=== PATIENT | male | born 1985 | race Caucasian/White ===

== ENCOUNTER 2016-06-10 09:32 | Emergency (ER) | payer BC ==
[~2016-06-10] VITALS: Ht 182.9 cm; Wt 86.2 kg
[~2016-06-10 09:32] MED LIST: CYCL10TA9 PO; HYDR-1231 PO; IBUP-30 PO; NAPR-243 PO; OMEP40CA36 PO; PRD20T PO
[2016-06-10] MEDS ORDERED: PRD20T (10:32)
--- NOTE | 2016-06-10 10:59 | ED GI ---
General Chief Complaint: Abdominal/GI Problems Stated Complaint: DIARRHEA, UPSET STOMACH Nursing Triage Note: DIZZINESS AND DIARRHEA SINCE SUNDAY. 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 Denies fevers or chills or abdominal pain. He has nausea but no vomiting. Timing/Duration: 2-3 Days Severity/Quality: Other (no pain) Associated Symptoms: No Fever/Chills, Nausea/Vomiting Allergies and Home Medications Allergies Coded Allergies: No Known Drug Allergies (Unverified , 08/25/09) Home Medications Prednisone 20 Mg Tab, #12 (Reported) Review of Systems Constitutional: see HPI EENTM: No Symptoms Reported Respiratory: No Symptoms Reported Cardiovascular: No Symptoms Reported Gastrointestinal: See HPI, Diarrhea, Nausea Genitourinary: No Symptoms Reported Musculoskeletal: no symptoms reported Skin: no symptoms reported Psychiatric/Neurological: No Symptoms Reported Endocrine: No Symptoms Reported Past Blvdxuh-Phybye-Zagqwl Hx Patient Social History Alcohol Use: Occasionally Uses Recreational Drug Use: No Smoking Status: Never a Smoker Recent Foreign Travel: No Contact w/Someone Who Travel: No Recent Infectious Disease Expo: No Recent Hopitalizations: Yes ("cat scratch fever" at 9yrs old) Immunizations Up To Date Tetanus Booster (TDap): Unknown Seasonal Allergies Seasonal Allergies: No Surgeries HX Surgeries: Yes (LT ARM TRAUMA, "NECK GLANDS FROM ") Surgeries: Orthopedic Respiratory Hx Respiratory Disorders: No Cardiovascular Hx Cardiac Disorders: No Neurological Hx Neurological Disorders: No Reproductive System Hx Reproductive Disorders: No Genitourinary Hx Genitourinary Disorders: No Gastrointestinal Hx Gastrointestinal Disorders: No Musculoskeletal Hx Musculoskeletal Disorders: Yes (LEFT ARM INJURY) Endocrine Hx Endocrine Disorders: No HEENT HX ENT Disorders: No Cancer Hx Cancer: No Psychosocial Hx Psychiatric Problems: No Integumentary HX Skin/Integumentary Disorder: No Blood Transfusions Hx Blood Disorders: No Physical Exam Vital Signs VS - Last 72 Hours, by Label 06/10/16 10:15 Temp 97.0 Pulse 79 Resp 18 B/P (MAP) 127/93 Pulse Ox 98 Capillary Refill : Less Than 3 Seconds General Appearance: WD/WN, no apparent distress HEENT: PERRL/EOMI, normal ENT inspection Neck: non-tender, full range of motion Respiratory: normal breath sounds, no respiratory distress, no accessory muscle use Gastrointestinal: normal bowel sounds, non tender, soft Extremities: normal range of motion, non-tender Neurologic/Psychiatric: alert, normal mood/affect, oriented x 3 Skin: normal color, warm/dry Progress/Results/Core Measures Results/Orders Lab Results Laboratory Tests Test 06/10/16 11:10 Range/Units White Blood Count 2.7 L 4.3-11.0 10^3/uL Red Blood Count 4.98 4.35-5.85 10^6/uL Hemoglobin 15.4 13.3-17.7 G/DL Hematocrit 46 40-54 % Mean Corpuscular Volume 92 80-99 FL Mean Corpuscular Hemoglobin 31 25-34 PG Mean Corpuscular Hemoglobin Concent 34 32-36 G/DL Red Cell Distribution Width 12.9 10.0-14.5 % Platelet Count 142 130-400 10^3/uL Mean Platelet Volume 9.0 7.4-10.4 FL Neutrophils (%) (Auto) 46 42-75 % Lymphocytes (%) (Auto) 35 12-44 % Monocytes (%) (Auto) 18 H 0-12 % Eosinophils (%) (Auto) 0 0-10 % Basophils (%) (Auto) 0 0-10 % Neutrophils # (Auto) 1.2 L 1.8-7.8 X 10^3 Lymphocytes # (Auto) 0.9 L 1.0-4.0 X 10^3 Monocytes # (Auto) 0.5 0.0-1.0 X 10^3 Eosinophils # (Auto) 0.0 0.0-0.3 10^3/uL Basophils # (Auto) 0.0 0.0-0.1 10^3/uL My Orders Orders - TERRELL DAVIDSON APRN Cbc With Automated Diff (06/10/16 10:56) Comprehensive Metabolic Panel (06/10/16 10:56) Ua Culture If Indicated (06/10/16 10:56) Stool Culture (06/10/16 10:56) C Difficile Ag + Toxin A/B. (06/10/16 10:56) Saline Lock/Iv-Start (06/10/16 10:56) Ns Iv 1000 Ml (Sodium Chloride 0.9%) (06/10/16 11:00) Vital Signs/I&O Vital Sign - Last 12Hours 06/10/16 10:15 Temp 97.0 Pulse 79 Resp 18 B/P (MAP) 127/93 Pulse Ox 98 Blood Pressure Mean: 104 Departure Impression Impression: Primary Impression: Nausea vomiting and diarrhea Disposition: 01 HOME, SELF-CARE Condition: Stable Departure-Patient Inst. Decision time for Depature: 11:01 Referrals: NO,LOCAL PHYSICIAN (PCP/Family) Primary Care Physician Patient Instructions: Diarrhea in Adolescents and Adults Add. Discharge Instructions: 1. Lssj-rce-obydwvz Imodium as needed for diarrhea 2. Drink plenty of liquids 3. Return to ER for any fevers or abdominal pain or obvious blood in your stools All discharge instructions reviewed with patient and/or family. Voiced understanding. Scripts Ondansetron (Zofran Odt) 8 Mg Tab.rapdis 8 MG PO Q6H Y for NAUSEA/VOMITING-1ST LINE, #10 TAB Prov: TERRELL DAVIDSON APRN 06/10/16 TERRELL DAVIDSON APRN Jun 10, 2016 10:59
[2016-06-10] MEDS ORDERED: NS IV 1000 ML 1,000 ML IV SCH (11:00)
[2016-06-10 11:19] LABS: BASOPHILS % (AUTO) 0 % (0-10); EOSINOPHILS % (AUTO) 0 % (0-10); LYMPHOCYTES # (AUTO) 0.9 X 10^3 (1.0-4.0); LYMPHOCYTES % (AUTO) 35 % (12-44); MEAN CORPUSCULAR HEMOGLOBIN 31 PG (25-34); MEAN CORPUSCULAR HGB CONC 34 G/DL (32-36); MEAN CORPUSCULAR VOLUME 92 FL (80-99); MONOCYTES # (AUTO) 0.5 X 10^3 (0.0-1.0); MONOCYTES % (AUTO) 18 % (0-12); NEUTROPHILS # (AUTO) 1.2 X 10^3 (1.8-7.8); NEUTROPHILS % (AUTO) 46 % (42-75); PLATELET COUNT 142 10^3/uL (130-400); RED BLOOD COUNT 4.98 10^6/uL (4.35-5.85); RED CELL DISTRIBUTION WIDTH 12.9 % (10.0-14.5); WHITE BLOOD COUNT 2.7 10^3/uL (4.3-11.0)
[2016-06-10 11:41] LABS: ALANINE AMINOTRANSFERASE 18 U/L (0-55); ANION GAP 10 MMOL/L (5-14); ASPARTATE AMINO TRANSFERASE 21 U/L (5-34); BILIRUBIN,TOTAL 0.4 MG/DL (0.1-1.0); BLOOD UREA NITROGEN 11 MG/DL (7-18); BUN/CREATININE RATIO 10; CALCIUM 8.7 MG/DL (8.5-10.1); CARBON DIOXIDE 27 MMOL/L (21-32); CHLORIDE 104 MMOL/L (98-107); CREATININE SERUM 1.05 MG/DL (0.60-1.30); GFR ESTIMATED > 60; GLUCOSE 97 MG/DL (70-105); POTASSIUM 4.2 MMOL/L (3.6-5.0); SODIUM 141 MMOL/L (135-145); TOTAL PROTEIN 6.5 G/DL (6.4-8.2)
[2016-06-10] MEDS ORDERED: ONDA8TAB9 PO (11:41)
[2016-06-10 11:56] VITALS: BP 113/79
== END 2016-06-10 11:56 | disposition home or self-care (01) ==
LOC: EDUNIT# 09:32 → ER 09:33
DX: R11.2 Nausea with vomiting, unspecified (principal); R19.7 Diarrhea, unspecified
CPT/HCPCS: 36415; 80053; 85025; 87045; 87046; 87324; 87449; 96360

== ENCOUNTER → 2016-06-16 | Outpatient (CLI) | payer BC ==
[~2016-06-16] MED LIST changes: +ONDA8TAB9 PO; +PRD20T
--- NOTE | 2016-06-16 10:19 | Diagnostic Imaging Report ---
PROCEDURE: US Gallbladder. TECHNIQUE: Multiple real-time grayscale images were obtained over the right upper quadrant in various projections. INDICATION: Right upper quadrant pain and nausea. FINDINGS: The pancreas is largely obscured by bowel gas. The liver demonstrate no focal mass. Hepatopetal flow the portal vein is seen. The CBD is 4 mm in caliber. The gallbladder demonstrates no stones. No gallbladder wall thickening or pericholecystic fluid. The right kidney is 9.8 cm in length. No hydronephrosis. No fluid collection in the upright abdomen seen. Sonographic Beckwith's sign is reportedly negative. IMPRESSION: No gallstones or evidence of cholecystitis. Dictated by: Dictated on workstation # [id number]
== END ==
LOC: RAD 09:26
PROVIDERS: ATTEND Nurse Practitioner Family
DX: R10.32 Left lower quadrant pain (principal); R10.13 Epigastric pain; R11.0 Nausea; R42 Dizziness and giddiness; R19.7 Diarrhea, unspecified
CPT/HCPCS: 76705

== ENCOUNTER 2018-02-23 14:55 | Emergency (ER) | payer BC ==
[~2018-02-23] VITALS: Ht 182.9 cm; Wt 86.2 kg
--- OUTSIDE RECORDS SUMMARY | 2018-02-23 15:00 | XMS REPORT | Continuity of Care Document ---
Author Author [facility] Organization [facility] Address Unknown Phone Unavailable Allergies Active Description Code Type Severity Reaction Onset Reported/Identified Relationship to Patient Clinical Status Yes No Known Drug Allergies [id number] Drug Allergy Unknown N/A 08/25/2009 Medications There is no data. Problems Date Dx Coded Attending Type Code Diagnosis Diagnosed By 04/26/2013 TERRELL DAVIDSON APRN Ot 724.2 LUMBAGO 04/26/2013 TERRELL DAVIDSON APRN Ot 784.0 HEADACHE 06/16/2013 TERRELL DAVIDSON APRN Ot 724.2 LUMBAGO 05/05/2015 JONATHAN DO, LAURA K Ot F17.210 NICOTINE DEPENDENCE, CIGARETTES, UNCOMPL 05/05/2015 JONATHAN DO, LAURA K Ot S05.31XA OCULAR LAC W/O PROLAPS/LOSS OF INTRAOC T 05/05/2015 JONATHAN DO, LAURA K Ot W20.8XXA OTH CAUSE OF STRIKE BY THROWN, PROJECTED 05/05/2015 JONATHAN DO, LAURA K Ot Y92.015 PRIVATE GARAGE OF SINGLE-FAMILY (PRIVATE 05/05/2015 JONATHAN DO, LAURA K Ot Y99.8 OTHER EXTERNAL CAUSE STATUS 05/06/2015 JONATHAN DO, LAURA K Ot F17.210 05/06/2015 JONATHAN DO, LAURA K Ot S05.31XA 05/06/2015 JONATHAN DO, LAURA K Ot W20.8XXA 05/06/2015 JONATHAN DO, LAURA K Ot Y92.015 05/06/2015 JONATHAN DO, LAURA K Ot Y99.8 05/06/2015 JONATHAN DO, LAURA K Ot F17.210 05/06/2015 JONATHAN DO, LAURA K Ot S05.31XA 05/06/2015 JONATHAN DO, LAURA K Ot W20.8XXA 05/06/2015 JONATHAN DO, LAURA K Ot Y92.015 05/06/2015 LAURA CASTILLO DO Ot Y99.8 06/10/2016 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 [employer] Ot R11.2 NAUSEA WITH VOMITING, UNSPECIFIED 06/10/2016 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 SALESPERSON [employer] Ot R19.7 DIARRHEA, UNSPECIFIED 06/12/2016 DAVIDSON, TERRELL Skelton SALESPERSON [employer] Ot R11.2 NAUSEA WITH VOMITING, UNSPECIFIED 06/12/2016 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 SALESPERSON [employer] Ot R19.7 DIARRHEA, UNSPECIFIED 06/16/2016 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 SALESPERSON [employer]IAL [employer]S Ot R11.2 NAUSEA WITH VOMITING, UNSPECIFIED 06/16/2016 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 SALESPERSON [employer] Ot R19.7 DIARRHEA, UNSPECIFIED 06/22/2016 MANAN NATASHA Vickey SALESPERSON [employer] Ot R10.13 EPIGASTRIC PAIN 06/22/2016 NATASHA HINKLE Vickey SALESPERSON [employer] Ot R10.32 LEFT LOWER QUADRANT PAIN 06/22/2016 NATASHA HINKLE Vickey SALESPERSON [employer] Ot R11.0 NAUSEA 06/22/2016 NATASHA HINKLE Vickey SALESPERSON [employer] Ot R19.7 DIARRHEA, UNSPECIFIED 06/22/2016 NATASHA HINKLE Vickey SALESPERSON [employer] Ot R42 DIZZINESS AND GIDDINESS 06/28/2016 NATASHA HINKLE Vickey SALESPERSON [employer] Ot R10.13 EPIGASTRIC PAIN 06/28/2016 NATASHA HINKLE Vickey SALESPERSON [employer] Ot R10.32 LEFT LOWER QUADRANT PAIN 06/28/2016 NATASHA HINKLE Vickey SALESPERSON [employer] Ot R11.0 NAUSEA 06/28/2016 NATASHA HINKLE SALESPERSON [employer] Ot R19.7 DIARRHEA, UNSPECIFIED 06/28/2016 NATASHA HINKLE Vickey SALESPERSON [employer] Ot R42 DIZZINESS AND GIDDINESS Procedures There is no data. Results Test Result Range Complete blood count (CBC) with automated white blood cell (WBC) differential - 06/10/16 11:10 Blood leukocytes automated count (number/volume) 2.7 10*3/uL 4.3-11.0 Blood erythrocytes automated count (number/volume) 4.98 10*6/uL 4.35-5.85 Venous blood hemoglobin measurement (mass/volume) 15.4 g/dL 13.3-17.7 Blood hematocrit (volume fraction) 46 % 40-54 Automated erythrocyte mean corpuscular volume 92 [foz_us] 80-99 Automated erythrocyte mean corpuscular hemoglobin (mass per erythrocyte) 31 pg 25-34 Automated erythrocyte mean corpuscular hemoglobin concentration measurement ( mass/volume) 34 g/dL 32-36 Automated erythrocyte distribution width ratio 12.9 % 10.0-14.5 Automated blood platelet count (count/volume) 142 10*3/uL 130-400 Automated blood platelet mean volume measurement 9.0 [foz_us] 7.4-10.4 Automated blood neutrophils/100 leukocytes 46 % 42-75 Automated blood lymphocytes/100 leukocytes 35 % 12-44 Blood monocytes/100 leukocytes 18 % 0-12 Automated blood eosinophils/100 leukocytes 0 % 0-10 Automated blood basophils/100 leukocytes 0 % 0-10 Blood neutrophils automated count (number/volume) 1.2 10*3 1.8-7.8 Blood lymphocytes automated count (number/volume) 0.9 10*3 1.0-4.0 Blood monocytes automated count (number/volume) 0.5 10*3 0.0-1.0 Automated eosinophil count 0.0 10*3/uL 0.0-0.3 Automated blood basophil count (count/volume) 0.0 10*3/uL 0.0-0.1 Comprehensive metabolic panel - 06/10/16 11:10 Serum or plasma sodium measurement (moles/volume) 141 mmol/L 135-145 Serum or plasma potassium measurement (moles/volume) 4.2 mmol/L 3.6-5.0 Serum or plasma chloride measurement (moles/volume) 104 mmol/L 98-107 Carbon dioxide 27 mmol/L 21-32 Serum or plasma anion gap determination (moles/volume) 10 mmol/L 5-14 Serum or plasma urea nitrogen measurement (mass/volume) 11 mg/dL 7-18 Serum or plasma creatinine measurement (mass/volume) 1.05 mg/dL 0.60-1.30 Serum or plasma urea nitrogen/creatinine mass ratio 10 NRG Serum or plasma creatinine measurement with calculation of estimated glomerular filtration rate > NRG Serum or plasma glucose measurement (mass/volume) 97 mg/dL 70-105 Serum or plasma calcium measurement (mass/volume) 8.7 mg/dL 8.5-10.1 Serum or plasma total bilirubin measurement (mass/volume) 0.4 mg/dL 0.1-1.0 Serum or plasma alkaline phosphatase measurement (enzymatic activity/volume) 38 U/L 40-136 Serum or plasma aspartate aminotransferase measurement (enzymatic activity/ volume) 21 U/L 5-34 Serum or plasma alanine aminotransferase measurement (enzymatic activity/volume ) 18 U/L 0-55 Serum or plasma protein measurement (mass/volume) 6.5 g/dL 6.4-8.2 Serum or plasma albumin measurement (mass/volume) 4.0 g/dL 3.2-4.5 [id number] - 06/10/16 11:10 RESULTS NEGATIVE FOR ANTIGEN AND TOXIN A/B NRG Stool bacteria identification by culture - 06/10/16 11:10 Encounters ACCT No. Visit Date/Time Discharge Status Pt. Type Provider Facility Loc./Unit Complaint [id number] 06/16/2016 09:26:00 06/16/2016 23:59:59 [facility] Outpatient NATASHA HINKLE APRN [facility] RAD R10.12 [id number] 06/10/2016 09:33:00 06/10/2016 11:56:00 DIS Emergency TERRELL DAVIDSON APRN [facility] ER DIARRHEA, UPSET STOMACH [id number] 05/05/2015 17:52:00 05/05/2015 18:48:00 DIS Emergency LAURA CASTILLO DO [facility] ER EYE PUNCTURED [id number] 06/16/2013 18:20:00 06/16/2013 19:47:00 DIS Emergency TERRELL DAVIDSON APRN [facility] ER LOWER BACK PAIN [id number] 04/26/2013 18:35:00 04/26/2013 20:33:00 DIS Emergency TERRELL DAVIDSON APRN [facility] ER LOWER BACK PAIN
--- OUTSIDE RECORDS SUMMARY | 2018-02-23 15:00 | XMS REPORT | Clinical Summary ---
Author Author [facility] Organization [facility] Address Unknown Phone Unavailable Care Team Providers Care Senior Grants Officer Name Role Phone No Pcp, Na PCP Unavailable Jamal Blood MD Unavailable Martina Drummond DO Unavailable Outpatient, Radiologist Unavailable Unavailable Derick Phan MD Unavailable Nedra Barrett RN Unavailable Unavailable Source Comments Some departments are not documenting in the electronic medical record. If you do not see the information that you expected, contact Release of Information in the Health Information Management department at [phone] for further assistance in locating additional records.[facility] Allergies No Known Allergies Medications End Date Status Medication Sig Dispensed Refills Start Date Active HYDROcodone/acetaminophen Take 1-2 Tabs 45 Tab 0 (NORCO; VICODIN) 5-325 mg by mouth 6 tablet every 6 hours as needed for Pain Active ondansetron (ZOFRAN) 4 mg Take 1 Tab by 30 Tab 1 tablet mouth every 4 6 hours as needed for Nausea. 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 Last Filed Vital Signs Time Taken Vital Sign Reading 03/17/2016 8:31 AM UNDERCOVER OPERATOR Blood Pressure 128/97 03/17/2016 8:31 AM UNDERCOVER OPERATOR Pulse 80 05/13/2015 11:32 AM CDT Temperature 36.5 C (97.7 F) - Respiratory Rate - 05/13/2015 1:15 PM CDT Oxygen Saturation 96% - Inhaled Oxygen - Concentration 03/17/2016 8:31 AM UNDERCOVER OPERATOR Weight 81.6 kg (180 lb) 03/17/2016 8:31 AM UNDERCOVER OPERATOR Height 182.9 cm (6') 03/17/2016 8:31 AM UNDERCOVER OPERATOR Body Mass Index 24.41 Plan of Treatment Health Maintenance Due Date Last Done Comments PHYSICAL (COMPREHENSIVE) 1993 EXAM HIV SCREENING 2001 DTAP/TDAP VACCINES ( - 2004 Tdap) INFLUENZA VACCINE 09/26/2017 Implants Device Identifier Shelf Expiration Date Model / Serial / Lot Implanted Type Area Manufactur er 11/22/2016 [id number] / [id number] / [id number] Sclera Tissie Right: Eye [employer] Implanted: Qty: 1 on 05/13/2015 by [employer] Derick Phan MD [place] 09/26/2019 [id number] / [id number] / [id number] Cnfr Opt Med Plamd 12 Prfr Right: Eye ASSISTED Implanted: Qty: 1 on 05/13/2015 by [employer] Derick Phan MD Results Not on filefrom Last 3 Months Insurance Payer Benefit Subscriber ID Type Phone Address Plan / Group [employer] xxxxxxxxxxxx O [facility] BL[facility] Advance Directives Patient has advance care planning documents, and code status on file. For more information, please contact: [facility] [address] [place] [address] Date Inactivated Comments Code Status Date Activated 05/06/2015 4:29 PM Full Code 05/06/2015 12:00 AM Provider has discussed Code Status No, more discussion w/Patient or Family? needed
--- NOTE | 2018-02-23 16:10 | ED General ---
General Chief Complaint: General Problems/Pain Stated Complaint: PAIN IN L ARMPIT, L ARM NUMBNESS Nursing Triage Note: Pt ambulated to rm 6 w/o diificulty. Pt c/o sharp pain in L armpit that began approximately 2 hours ago. Pt reports hand went numb afterward and felt as if "elbow was heavy." Pt reports feeling weak and nauseated. Nursing Sepsis Screen: No Definite Risk Source of Information: Patient Exam Limitations: No Limitations History of Present Illness Date Seen by Provider: Feb 23, 2018 Time Seen by Provider: 16:11 Initial Comments To ER with reports of sharp pain in the left upper lateral chest wall that seems to radiate down the left arm affecting the thumb pointer and middle finger as a sensation of numbness auras of the arm is asleep. 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 His numbness and tingling of the thumb pointer and middle finger has been intermittent and is not present currently. The sharp chest pain is not present currently. He cannot identify any factors such as movement or deep breathing that brings about/worsens this pain. He's never had this before. Timing/Duration: 1-2 Days Severity: Moderate Allergies and Home Medications Allergies Coded Allergies: No Known Drug Allergies (Unverified , 08/25/09) Home Medications Ondansetron 8 Mg Tab.rapdis, 8 MG PO Q6H PRN for NAUSEA/VOMITING-1ST LINE Prescribed by: TERRELL DAVIDSON on 06/10/16 1141 Patient Home Medication List Home Medication List Reviewed: Yes Review of Systems Review of Systems Constitutional: see HPI EENTM: see HPI Respiratory: no symptoms reported Cardiovascular: no symptoms reported Genitourinary: no symptoms reported Musculoskeletal: no symptoms reported Skin: no symptoms reported Psychiatric/Neurological: No Symptoms Reported Hematologic/Lymphatic: No Symptoms Reported Immunological/Allergic: no symptoms reported Past Hvrukmi-Aodwck-Daopct Hx Patient Social History Alcohol Use: Occasionally Uses Alcohol Beverage of Choice: Beer Recreational Drug Use: No Type Used: Smokeless Tobacco Recent Foreign Travel: No Contact w/Someone Who Travel: No Recent Infectious Disease Expo: No Recent Hopitalizations: Yes ("cat scratch fever" at 9yrs old) Physical Abuse: No Sexual Abuse: No Immunizations Up To Date Tetanus Booster (TDap): Unknown Seasonal Allergies Seasonal Allergies: No Past Medical History Surgeries: Yes (LT ARM TRAUMA, "NECK GLANDS FROM ") Orthopedic Respiratory: No Cardiac: No Neurological: No Reproductive Disorders: No Gastrointestinal: No Musculoskeletal: Yes (LEFT ARM INJURY) Endocrine: No Cancer: No Psychosocial: No Integumentary: No Blood Disorders: No Physical Exam Vital Signs Vital Signs - First Documented 02/23/18 15:36 Temp 98.3 Pulse 71 Resp 14 B/P (MAP) 138/90 (106) Pulse Ox 99 O2 Delivery Room Air Capillary Refill : Less Than 3 Seconds Height, Weight, BMI Height: 6'0" Weight: 190lbs. oz. 86.394791oh; 24.41 BMI Method:Stated General Appearance: No Apparent Distress, WD/WN Eyes: Bilateral Eye Normal Inspection, Bilateral Eye PERRL, Bilateral Eye EOMI HEENT: PERRL/EOMI, TMs Normal Neck: Full Range of Motion, Normal Inspection Respiratory: Normal Breath Sounds, No Accessory Muscle Use, No Respiratory Distress Cardiovascular: Regular Rate, Rhythm, Normal Peripheral Pulses Extremity: Normal Capillary Refill, Normal Inspection, Other (old scars over the left forearm from his injury 7 years ago. No erythema or swelling. Full range of motion of the elbow wrist and shoulder. The left lateral chest wall at the area of pain is nontender to palpation and without any skin lesion to suggest herpes zoster.) Neurologic/Psychiatric: Alert, Oriented x3 Skin: Normal Color, Warm/Dry Progress/Results/Core Measures Suspected Sepsis Recent Fever Within 48 Hours: No Infection Criteria Present: None New/Unexplained Altered Menta: No Sepsis Screen: No Definite Risk SIRS Temperature:98.3 Pulse: 71 Respiratory Rate: 14 Blood Pressure 138 /90 Mean: 106 Results/Orders My Orders Orders - TERRELL DAVIDSON APRN Cbc With Automated Diff (02/23/18 16:08) Basic Metabolic Panel (02/23/18 16:08) Chest Pa/Lat (2 View) (02/23/18 16:08) Vital Signs/I&O 02/23/18 15:36 Temp 98.3 Pulse 71 Resp 14 B/P (MAP) 138/90 (106) Pulse Ox 99 O2 Delivery Room Air Capillary Refill : Less Than 3 Seconds Blood Pressure Mean: 106 Departure Impression Primary Impression: Chest wall pain Disposition: 01 HOME, SELF-CARE Condition: Stable Departure-Patient Inst. Decision time for Depature: 16:14 Referrals: NO,LOCAL PHYSICIAN (PCP/Family) Primary Care Physician Add. Discharge Instructions: All discharge instructions reviewed with patient and/or family. Voiced understanding. TERRELL DAVIDSON MANUFACTURING TEST TECHNICIAN Feb 23, 2018 16:10
--- NOTE | 2018-02-23 16:32 | Diagnostic Imaging Report ---
INDICATION: Left-sided chest pain. FINDINGS: Examination of the chest in the PA and lateral projections fails to reveal evidence of active parenchymal pathology or pleural effusion. The cardiac silhouette is normal. IMPRESSION: Negative chest. There is no change from 06/06/2012. Dictated by: Dictated on workstation # [id number]
[2018-02-23 16:41] LABS: BASOPHILS % (AUTO) 1 % (0-10); EOSINOPHILS # (AUTO) 0.2 10^3/uL (0.0-0.3); EOSINOPHILS % (AUTO) 2 % (0-10); HEMATOCRIT 46 % (40-54); HEMOGLOBIN 15.7 G/DL (13.3-17.7); LYMPHOCYTES # (AUTO) 1.7 X 10^3 (1.0-4.0); LYMPHOCYTES % (AUTO) 21 % (12-44); MEAN CORPUSCULAR HEMOGLOBIN 32 PG (25-34); MEAN CORPUSCULAR HGB CONC 35 G/DL (32-36); MEAN CORPUSCULAR VOLUME 94 FL (80-99); MEAN PLATELET VOLUME 8.7 FL (7.4-10.4); MONOCYTES # (AUTO) 0.7 X 10^3 (0.0-1.0); MONOCYTES % (AUTO) 9 % (0-12); NEUTROPHILS # (AUTO) 5.5 X 10^3 (1.8-7.8); NEUTROPHILS % (AUTO) 68 % (42-75); PLATELET COUNT 247 10^3/uL (130-400); RED BLOOD COUNT 4.85 10^6/uL (4.35-5.85); RED CELL DISTRIBUTION WIDTH 12.8 % (10.0-14.5); WHITE BLOOD COUNT 8.1 10^3/uL (4.3-11.0)
[2018-02-23 16:58] LABS: BUN/CREATININE RATIO 10; CALCIUM 9.5 MG/DL (8.5-10.1); CARBON DIOXIDE 24 MMOL/L (21-32); CHLORIDE 102 MMOL/L (98-107); CREATININE SERUM 1.05 MG/DL (0.60-1.30); GFR ESTIMATED > 60; GLUCOSE 108 MG/DL (70-105); POTASSIUM 4.2 MMOL/L (3.6-5.0); SODIUM 139 MMOL/L (135-145)
[2018-02-23 17:08] VITALS: BP 134/82
== END 2018-02-23 17:10 | disposition home or self-care (01) ==
LOC: EDUNIT# 14:55 → ER 14:56
DX: R07.89 Other chest pain (principal)
CPT/HCPCS: 36415; 71046; 80048; 85025

== ENCOUNTER 2018-12-10 20:54 | Emergency (ER) | payer BC ==
[~2018-12-10] VITALS: Ht 182 cm; Wt 77.2 kg
--- NOTE | 2018-12-10 21:09 | ED Cardiac General ---
History of Present Illness General Chief Complaint: Chest Pain Stated Complaint: CHEST PAIN Source: patient Exam Limitations: no limitations History of Present Illness Date Seen by Provider: Dec 10, 2018 Time Seen by Provider: 21:07 Initial Comments To ER by private vehicle with reports of an onset left-sided chest pain worsens with movement that began about 6:30 PM this evening. No preceding trauma no cough no shortness of breath. The pain is worsened slightly worsened by breathing, but mostly worsened by movement. Pain is described as sharp in nature. No history of this. Timing/Duration: 1-3 hours Severity: moderate Activities at Onset: none NTG SL PIER MASTER: No ASA po PIER MASTER: No Associated Systoms: Chest Pain Allergies and Home Medications Allergies Coded Allergies: No Known Drug Allergies (Unverified , 08/25/09) Home Medications Ondansetron 8 Mg Tab.rapdis, 8 MG PO Q6H PRN for NAUSEA/VOMITING-1ST LINE Prescribed by: TERRELL DAVIDSON on 06/10/16 1141 Patient Home Medication List Home Medication List Reviewed: Yes Review of Systems Review of Systems Constitutional: see HPI EENTM: No Symptoms Reported Respiratory: See HPI Cardiovascular: See HPI, Chest Pain Gastrointestinal: No Symptoms Reported Genitourinary: No Symptoms Reported Musculoskeletal: no symptoms reported Skin: no symptoms reported Psychiatric/Neurological: No Symptoms Reported Past Welloau-Vphtkc-Mrhage Hx Patient Social History Alcohol Beverage of Choice: Beer Type Used: Smokeless Tobacco Recent Foreign Travel: No Contact w/Someone Who Travel: No Recent Hopitalizations: Yes ("cat scratch fever" at 9yrs old) Immunizations Up To Date Tetanus Booster (TDap): Unknown Seasonal Allergies Seasonal Allergies: No Past Medical History Surgeries: Yes (LT ARM TRAUMA, "NECK GLANDS FROM ") Orthopedic Respiratory: No Cardiac: No Neurological: No Reproductive Disorders: No Gastrointestinal: No Musculoskeletal: Yes (LEFT ARM INJURY) Endocrine: No Cancer: No Psychosocial: No Integumentary: No Blood Disorders: No Physical Exam Vital Signs Vital Signs - First Documented 12/10/18 20:55 Temp 36.9 Pulse 81 Resp 20 B/P (MAP) 136/91 (106) Pulse Ox 99 O2 Delivery Room Air Capillary Refill : Height, Weight, BMI Height: 6'0" Weight: 190lbs. oz. 86.967945ek; 24.41 BMI Method:Stated General Appearance: WD/WN, Mild Distress (related to pain with movement) Neck: Full Range of Motion Respiratory: Normal Breath Sounds, No Accessory Muscle Use, No Respiratory Distress Cardiovascular: Regular Rate, Rhythm, Normal Peripheral Pulses Gastrointestinal: Normal Bowel Sounds, Non Tender, Soft Extremity: Normal Capillary Refill, Normal Inspection Neurologic/Psychiatric: Alert, Oriented x3 Skin: Normal Color, Warm/Dry Progress/Results/Core Measures Results/Orders Lab Results Laboratory Tests Test 12/10/18 21:03 Range/Units White Blood Count 7.2 4.3-11.0 10^3/uL Red Blood Count 4.72 4.35-5.85 10^6/uL Hemoglobin 15.1 13.3-17.7 G/DL Hematocrit 44 40-54 % Mean Corpuscular Volume 94 80-99 FL Mean Corpuscular Hemoglobin 32 25-34 PG Mean Corpuscular Hemoglobin Concent 34 32-36 G/DL Red Cell Distribution Width 12.6 10.0-14.5 % Platelet Count 248 130-400 10^3/uL Mean Platelet Volume 8.7 7.4-10.4 FL Neutrophils (%) (Auto) 59 42-75 % Lymphocytes (%) (Auto) 26 12-44 % Monocytes (%) (Auto) 11 0-12 % Eosinophils (%) (Auto) 3 0-10 % Basophils (%) (Auto) 1 0-10 % Neutrophils # (Auto) 4.3 1.8-7.8 X 10^3 Lymphocytes # (Auto) 1.8 1.0-4.0 X 10^3 Monocytes # (Auto) 0.8 0.0-1.0 X 10^3 Eosinophils # (Auto) 0.2 0.0-0.3 10^3/uL Basophils # (Auto) 0.1 0.0-0.1 10^3/uL D-Dimer <= 0.27 0.00-0.49 UG/ML Sodium Level 139 135-145 MMOL/L Potassium Level 3.5 L 3.6-5.0 MMOL/L Chloride Level 103 98-107 MMOL/L Carbon Dioxide Level 24 21-32 MMOL/L Anion Gap 12 5-14 MMOL/L Blood Urea Nitrogen 13 7-18 MG/DL Creatinine 1.12 0.60-1.30 MG/DL Estimat Glomerular Filtration Rate > 60 BUN/Creatinine Ratio 12 Glucose Level 102 70-105 MG/DL Calcium Level 9.4 8.5-10.1 MG/DL Corrected Calcium 9.1 8.5-10.1 MG/DL Total Bilirubin 0.5 0.1-1.0 MG/DL Aspartate Amino Transf (AST/SGOT) 21 5-34 U/L Alanine Aminotransferase (ALT/SGPT) 16 0-55 U/L Alkaline Phosphatase 47 40-136 U/L Troponin I < 0.028 <0.028 NG/ML Total Protein 7.1 6.4-8.2 GM/DL Albumin 4.4 3.2-4.5 GM/DL My Orders Orders - TERRELL DAVIDSON APRN Cbc With Automated Diff (12/10/18 21:04) Hs C Reactive Protein (12/10/18 21:04) Troponin I (12/10/18 21:04) Ekg Tracing (12/10/18 21:04) Chest Pa/Lat (2 View) (12/10/18 21:04) Comprehensive Metabolic Panel (12/10/18 21:04) Ed Iv/Invasive Line Start (12/10/18 21:04) Ketorolac Injection (Toradol Injection) (12/10/18 21:15) Fentanyl Injection (Sublimaze Injection (12/10/18 21:15) Fibrin Degradation Products (12/10/18 21:05) Vital Signs/I&O 12/10/18 20:55 Temp 36.9 Pulse 81 Resp 20 B/P (MAP) 136/91 (106) Pulse Ox 99 O2 Delivery Room Air Diagnostic Imaging Diagonstic Imaging: Xray Comments NAME: RADHA ARRIAGA Alexandrea [facility] REC#: [id number] PT STATUS: REG ER : 1985 PHYSICIAN: TERRELL DAVIDSON APRN ADMIT DATE: 12/10/18/ER Draft Date of Exam:12/10/18 CHEST PA/LAT (2 VIEW) EXAMINATION: PA and lateral chest at 9:19 PM INDICATION: Shortness of breath The heart size is within normal limits and stable when compared to 02/23/18. Perihilar markings seen previously are again evident and no different. There is still no sign of failure, pneumonia or a pleural effusion to indicate an acute abnormality. The mediastinum is not widened. The osseous structures are intact. IMPRESSION: Stable chest. There has been no adverse change since the prior exam. Dictated on workstation # [id number] Dict: 12/10/182131 Trans: 12/10/182136 [facility] [id number] Interpreted by: ROSA CHILDS MD Electronically signed by: Departure Impression Primary Impression: Chest wall pain Disposition: HOME, SELF-CARE Condition: Stable Departure-Patient Inst. Decision time for Depature: 22:03 Referrals: NO,LOCAL PHYSICIAN (PCP/Family) Primary Care Physician Patient Instructions: Chest Pain That Is Not Caused by the Heart (DC) Add. Discharge Instructions: 1. Follow-up with your doctor later this week 2. Return if any concerns 3. All discharge instructions reviewed with patient and/or family. Voiced understanding. TERRELL DAVIDSON APRN Dec 10, 2018 21:09
[2018-12-10 21:10] LABS: BASOPHILS # (AUTO) 0.1 10^3/uL (0.0-0.1); BASOPHILS % (AUTO) 1 % (0-10); EOSINOPHILS # (AUTO) 0.2 10^3/uL (0.0-0.3); EOSINOPHILS % (AUTO) 3 % (0-10); HEMATOCRIT 44 % (40-54); HEMOGLOBIN 15.1 G/DL (13.3-17.7); LYMPHOCYTES # (AUTO) 1.8 X 10^3 (1.0-4.0); LYMPHOCYTES % (AUTO) 26 % (12-44); MEAN CORPUSCULAR HEMOGLOBIN 32 PG (25-34); MEAN CORPUSCULAR HGB CONC 34 G/DL (32-36); MEAN CORPUSCULAR VOLUME 94 FL (80-99); MEAN PLATELET VOLUME 8.7 FL (7.4-10.4); MONOCYTES # (AUTO) 0.8 X 10^3 (0.0-1.0); MONOCYTES % (AUTO) 11 % (0-12); NEUTROPHILS # (AUTO) 4.3 X 10^3 (1.8-7.8); NEUTROPHILS % (AUTO) 59 % (42-75); PLATELET COUNT 248 10^3/uL (130-400); RED CELL DISTRIBUTION WIDTH 12.6 % (10.0-14.5); WHITE BLOOD COUNT 7.2 10^3/uL (4.3-11.0)
[2018-12-10] MEDS ORDERED: fentaNYL INJECTION 100 MCG/2 ML AMP IVP ONE (21:15)
[2018-12-10] MEDS ORDERED: KETOROLAC 30 MG/ML VIAL IVP ONE (21:15)
--- NOTE | 2018-12-10 21:39 | Diagnostic Imaging Report ---
EXAMINATION: PA and lateral chest at 9:19 PM INDICATION: Shortness of breath The heart size is within normal limits and stable when compared to 02/23/18. Perihilar markings seen previously are again evident and no different. There is still no sign of failure, pneumonia or a pleural effusion to indicate an acute abnormality. The mediastinum is not widened. The osseous structures are intact. IMPRESSION: Stable chest. There has been no adverse change since the prior exam. Dictated by: Dictated on workstation # [id number]
[2018-12-10 21:42] LABS: ALANINE AMINOTRANSFERASE 16 U/L (0-55); ALBUMIN 4.4 GM/DL (3.2-4.5); ALKALINE PHOSPHATASE 47 U/L (40-136); BILIRUBIN,TOTAL 0.5 MG/DL (0.1-1.0); BUN/CREATININE RATIO 12; CALCIUM 9.4 MG/DL (8.5-10.1); CARBON DIOXIDE 24 MMOL/L (21-32); CHLORIDE 103 MMOL/L (98-107); CREATININE SERUM 1.12 MG/DL (0.60-1.30); GFR ESTIMATED > 60; GLUCOSE 102 MG/DL (70-105); POTASSIUM 3.5 MMOL/L (3.6-5.0); SODIUM 139 MMOL/L (135-145); TOTAL PROTEIN 7.1 GM/DL (6.4-8.2)
[2018-12-10 22:27] VITALS: BP 120/76
== END 2018-12-10 22:28 | disposition home or self-care (01) ==
LOC: EDUNIT# 20:54 → ER 20:55
DX: R07.89 Other chest pain (principal)
CPT/HCPCS: 36415; 71046; 80053; 84484; 85025; 85379; 86141; 93005

== ENCOUNTER → 2020-10-25 | Outpatient (CLI) | payer BC, OTHER ==
--- NOTE | 2020-10-25 11:38 | Diagnostic Imaging Report ---
PROCEDURE: US Gallbladder. TECHNIQUE: Multiple real-time grayscale images were obtained over the right upper quadrant in various projections. INDICATION: Right abdominal pain. COMPARISON: 06/16/2016. FINDINGS: The imaged portions of the pancreatic head and body appear normal. The tail is obscured by bowel gas. Imaged portions of the aorta and IVC appear normal. The liver demonstrates no focal lesions. Echogenicity is normal. There is no biliary dilatation. The portal vein is hepatopetal. The common bile duct measures 3.2 mm. The gallbladder wall is not thickened. No stones are seen. Sonographic Beckwith's sign is negative. The kidney measures 10.6 cm in length. There is no hydronephrosis. No free fluid is seen. IMPRESSION: 1. No acute abnormality is seen in the liver or gallbladder. Dictated by: Dictated on workstation # [id number]
== END ==
LOC: RAD 08:53
PROVIDERS: ATTEND Nurse Practitioner Family
DX: R10.31 Right lower quadrant pain (principal); R11.0 Nausea; R19.5 Other fecal abnormalities; R10.84 Generalized abdominal pain
CPT/HCPCS: 76705

== ENCOUNTER → 2020-11-04 | Outpatient (CLI) | payer BC, OTHER ==
[2020-11-04] MEDS: CATHETER FLUSH 10 ML SYR IV PRN ×2 (11:49→11:50)
--- NOTE | 2020-11-04 14:29 | Diagnostic Imaging Report ---
RADIOPHARMACEUTICAL: 4.51 mCi Tc-99m Choletec IV INDICATION: Right upper quadrant pain. COMPARISON: Ultrasound dated October 25, 2020. TECHNIQUE: Anterior dynamic imaging for 1 hour. Additional 60 minutes of imaging was performed after the patient ingested an 8-ounce can of Ensure Plus. FINDINGS: There is homogenous uptake throughout the liver. The gallbladder is visualized at 35 minutes and small bowel at 15 minutes. After the patient ingested an 8-ounce can of Ensure Plus, the gallbladder ejection fraction was calculated to be 52%, which is within normal limits. IMPRESSION: 1. Normal HIDA Scan without evidence of cystic or common duct obstruction. 2. Normal GBEF of 52%. Dictated by: Dictated on workstation # [id number]
== END ==
LOC: CARD 12:00
PROVIDERS: ATTEND Nurse Practitioner Family
DX: R10.11 Right upper quadrant pain (principal)
CPT/HCPCS: 78227; A9537

== ENCOUNTER 2021-01-10 19:21 | Emergency (ER) | payer OTHER ==
[~2021-01-10] VITALS: Ht 182.8 cm; Wt 75.0 kg
[2021-01-10] MEDS ORDERED: ASPIRIN 81 MG CHEW (CHILDREN'S ASA) PO ONE (19:30)
[2021-01-10 19:48] LABS: BASOPHILS # (AUTO) 0.1 10^3/uL (0.0-0.1); BASOPHILS % (AUTO) 1 % (0-10); EOSINOPHILS # (AUTO) 0.1 10^3/uL (0.0-0.3); EOSINOPHILS % (AUTO) 1 % (0-10); HEMATOCRIT 47 % (40-54); HEMOGLOBIN 15.9 g/dL (13.3-17.7); LYMPHOCYTES % (AUTO) 22 % (12-44); MEAN CORPUSCULAR HEMOGLOBIN 32 pg (25-34); MEAN CORPUSCULAR HGB CONC 34 g/dL (32-36); MEAN CORPUSCULAR VOLUME 94 fL (80-99); MEAN PLATELET VOLUME 8.7 fL (9.0-12.2); MONOCYTES # (AUTO) 0.8 10^3/uL (0.0-1.0); MONOCYTES % (AUTO) 8 % (0-12); NEUTROPHILS # (AUTO) 6.1 10^3/uL (1.8-7.8); NEUTROPHILS % (AUTO) 67 % (42-75); PLATELET COUNT 238 10^3/uL (130-400); WHITE BLOOD COUNT 9.1 10^3/uL (4.3-11.0)
[2021-01-10 20:15] LABS: ALBUMIN 4.4 GM/DL (3.2-4.5); BILIRUBIN,TOTAL 0.6 MG/DL (0.1-1.0); CALCIUM 9.4 MG/DL (8.5-10.1); CREATININE SERUM 1.03 MG/DL (0.60-1.30); MAGNESIUM 1.5 MG/DL (1.6-2.4); POTASSIUM 3.9 MMOL/L (3.6-5.0); TOTAL PROTEIN 7.4 GM/DL (6.4-8.2)
[2021-01-10] MEDS ORDERED: NITROGLYCERIN 0.4 MG SL TABS BTL 25'S SL PRN (20:15)
--- NOTE | 2021-01-10 20:16 | ED Chest Pain ---
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--NO LIFTING OR STRENUOUS ACTIVITY PAIN COMES AND GOES AND MOVES AROUND FROM LEFT LATERAL CHEST TO LEFT AXILLA TO LEFT INFRASCAPULAR AREA RATES PAIN 8-9/10 AT WORST, RATES PAIN 5/10 NOW. PAIN IS WORSE WITH ACTIVITY/WALKING AND SITTING UP. NOTHING RELIEVES PAIN ALSO HAS HAD INTERMITTENT NUMBNESS THAT ALSO MOVES AROUND--IN RIGHT AXILLA, DORSAL BICEPS AREA, AND SOME FINGERS NO NECK PAIN NO MOTOR DEFICITS STATES HE BROKE OUT IN A SWEAT, BUT ONLY AROUND HIS NECK, WITH THE PAIN EARLIER TODAY, AROUND NOON NO SHORTNESS OF BREATH NO SWELLING OF FEET OR ANKLES OR PAIN IN CALVES NO PALPITATIONS NO DIZZINESS OR SYNCOPE HAS HAD ONGOING NAUSEA AND EPIGASTRIC PAIN FOR 3-4 MONTHS--GALLBLADDER WORK UP HAS BEEN NEGATIVE, AND IS SCHEDULED TO HAVE EGD 02/11/[address] THOSE SYMPTOMS ARE NOT PRESENT NOW. NO HISTORY OF SIMILAR NO COUGH, URI SYMPTOMS OR FEVER PT HAS NOT HAD COVID-19 VACCINE. PCP: [facility] Allergies and Home Medications Allergies Coded Allergies: No Known Drug Allergies (Unverified , 08/25/09) Patient Home Medication List Ondansetron (Zofran Odt) 8 Mg Tab.rapdis, 8 MG PO Q6H PRN for NAUSEA/VOMITING- 1ST LINE Prescribed by: TERRELL DAVIDSON on 06/10/16 1141 Prednisone (Prednisone) 20 Mg Tab, (Reported) Entered as Reported by: CAMERON BOWMAN on 06/10/16 1032 Review of Systems Review of Systems Constitutional: see HPI, diaphoresis EENTM: No Symptoms Reported Respiratory: No Symptoms Reported; Denies Cough, Denies Shortness of Air Cardiovascular: See HPI; Denies Edema, Denies Irregular Heart Rate, Denies Lightheadedness, Denies Palpitations, Denies Syncope Gastrointestinal: See HPI Genitourinary: No Symptoms Reported Musculoskeletal: see HPI Skin: no symptoms reported Psychiatric/Neurological: See HPI Endocrine: No Symptoms Reported Hematologic/Lymphatic: No Symptoms Reported Past Rurwolz-Ftjwxx-Nnyisn Hx Patient Social History Tobacco Use?: Yes Tobacco type used: Cigarettes Smoking Status: Current Someday Smoker Smokeless Tobacco Frequency: Current Everyday User Substance use?: No Alcohol Use?: Yes Alcohol type: Beer, Hard Liquor Alcohol Frequency: Daily Immunizations Up To Date Tetanus Booster (TDap): Unknown PED Vaccines UTD: Yes Seasonal Allergies Seasonal Allergies: No Past Medical History Surgeries: Yes (LT ARM TRAUMA, "NECK GLANDS FROM ", right eye) Eye Surgery, Orthopedic Respiratory: No Cardiac: No Neurological: No Reproductive Disorders: No Genitourinary: No Gastrointestinal: No Musculoskeletal: Yes (LEFT ARM INJURY) Endocrine: No HEENT: Yes (RIGHT EYE TRAUMA/ENUCLEATION/FALSE EYE) Cancer: No Psychosocial: No Integumentary: No Blood Disorders: No Family Medical History SOCIAL HISTORY: -SMOKES CIGARETTES SOMETIMES, CHEWS DAILY -DENIES DRUG USE -DRINKS ALCOHOL DAILY--"3-4 DRINKS" A DAY--HARD LIQUOR/BEER PAST SURGICAL HISTORY: -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 oz. 86.802904ps; 23.00 BMI Method:Stated General Appearance: No Apparent Distress, WD/WN Neck: Normal Inspection Respiratory: Chest Non Tender, Normal Breath Sounds, No Accessory Muscle Use, No Respiratory Distress Cardiovascular: Regular Rate, Rhythm, No Edema, No JVD, No Murmur, Normal Peripheral Pulses Gastrointestinal: Normal Bowel Sounds, No Organomegaly, No Pulsatile Mass, Non Tender, Soft Extremity: Normal Capillary Refill, Normal Inspection, Normal Range of Motion, Non Tender, No Calf Tenderness, No Pedal Edema Neurologic/Psychiatric: Alert, Oriented x3, No Motor/Sensory Deficits, Normal 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, 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 Skin: Normal Color, Warm/Dry; No Rash Progress/Results/Core Measures Results/Orders Lab Results Laboratory Tests Test 01/10/21 19:39 01/10/21 20:20 01/10/21 23:15 Range/Units White Blood Count 9.1 4.3-11.0 10^3/uL Red Blood Count 4.97 4.30-5.52 10^6/uL Hemoglobin 15.9 13.3-17.7 g/dL Hematocrit 47 40-54 % Mean Corpuscular Volume 94 80-99 fL Mean Corpuscular Hemoglobin 32 25-34 pg Mean Corpuscular Hemoglobin Concent 34 32-36 g/dL Red Cell Distribution Width 12.3 10.0-14.5 % Platelet Count 238 130-400 10^3/uL Mean Platelet Volume 8.7 L 9.0-12.2 fL Immature Granulocyte % (Auto) 0 % Neutrophils (%) (Auto) 67 42-75 % Lymphocytes (%) (Auto) 22 12-44 % Monocytes (%) (Auto) 8 0-12 % Eosinophils (%) (Auto) 1 0-10 % Basophils (%) (Auto) 1 0-10 % Neutrophils # (Auto) 6.1 1.8-7.8 10^3/uL Lymphocytes # (Auto) 2.0 1.0-4.0 10^3/uL Monocytes # (Auto) 0.8 0.0-1.0 10^3/uL Eosinophils # (Auto) 0.1 0.0-0.3 10^3/uL Basophils # (Auto) 0.1 0.0-0.1 10^3/uL Immature Granulocyte # (Auto) 0.0 0.0-0.1 10^3/uL Prothrombin Time 13.0 12.2-14.7 SEC INR Comment 0.9 0.8-1.4 Activated Partial Thromboplast Time 31 24-35 SEC Sodium Level 137 135-145 MMOL/L Potassium Level 3.9 3.6-5.0 MMOL/L Chloride Level 100 98-107 MMOL/L Carbon Dioxide Level 24 21-32 MMOL/L Anion Gap 13 5-14 MMOL/L Blood Urea Nitrogen 11 7-18 MG/DL Creatinine 1.03 0.60-1.30 MG/DL Estimat Glomerular Filtration Rate 83 BUN/Creatinine Ratio 11 Glucose Level 110 H 70-105 MG/DL Calcium Level 9.4 8.5-10.1 MG/DL Corrected Calcium 9.1 8.5-10.1 MG/DL Magnesium Level 1.5 L 1.6-2.4 MG/DL Total Bilirubin 0.6 0.1-1.0 MG/DL Aspartate Amino Transf (AST/SGOT) 19 5-34 U/L Alanine Aminotransferase (ALT/SGPT) 16 0-55 U/L Alkaline Phosphatase 46 40-136 U/L Total Creatine Kinase 84 30-200 U/L Creatine Kinase MB 1.1 <6.6 NG/ML Myoglobin 33.1 10.0-92.0 NG/ML Troponin I < 0.028 < 0.028 <0.028 NG/ML B-Type Natriuretic Peptide < 10.0 <100.0 PG/ML Total Protein 7.4 6.4-8.2 GM/DL Albumin 4.4 3.2-4.5 GM/DL Amylase Level 83 25-125 U/L Lipase 43 8-78 U/L Urine Opiates Screen NEGATIVE NEGATIVE Urine Oxycodone Screen NEGATIVE NEGATIVE Urine Methadone Screen NEGATIVE NEGATIVE Urine Propoxyphene Screen NEGATIVE NEGATIVE Urine Barbiturates Screen NEGATIVE NEGATIVE Ur Tricyclic Antidepressants Screen NEGATIVE NEGATIVE Urine Phencyclidine Screen NEGATIVE NEGATIVE Urine Amphetamines Screen NEGATIVE NEGATIVE Urine Methamphetamines Screen NEGATIVE NEGATIVE Urine Benzodiazepines Screen NEGATIVE NEGATIVE Urine Cocaine Screen NEGATIVE NEGATIVE Urine Cannabinoids Screen NEGATIVE NEGATIVE My Orders Orders - LAURA CASTILLO DO Amylase (01/10/21 19:48) BNP (01/10/21 19:48) Drug Screen Stat (Urine) (01/10/21 19:48) Lipase (01/10/21 19:48) Creatine Kinase (01/10/21 19:48) Creatine Kinase Mb (01/10/21 19:48) Nitroglycerin 0.4 Mg Btl 25's (Nitrostat (01/10/21 20:15) Ct Angio Chest W (01/10/21 20:28) Iohexol Injection (Omnipaque 350 Mg/Ml 1 (01/10/21 21:00) Received Contrast (Hold Metformin- Contr (01/10/21 21:00) Ns (Ivpb) (Sodium Chloride 0.9% Ivpb Bag (01/10/21 21:00) Troponin I (01/10/21 23:11) Ekg Tracing (01/10/21 23:11) Rx-Naproxen (Rx-Naprosyn) (01/10/21 23:55) Medications Given in ED Current Medications Medications Dose Ordered Sig/Tricia Route Start Time Stop Time Status Last Admin Dose Admin Aspirin 324 mg ONCE ONCE PO 01/10/21 19:30 01/10/21 19:32 DC 01/10/21 19:51 324 MG Iohexol 100 ml ONCE ONCE IV 01/10/21 21:00 01/10/21 21:01 DC 01/10/21 21:58 100 ML Nitroglycerin 1 TAB Q 5 MIN X 3 NEEDED PRN SL 01/10/21 20:15 01/10/21 20:09 0.4 MG Sodium Chloride 100 ml ONCE ONCE IV 01/10/21 21:00 01/10/21 21:01 DC 01/10/21 21:58 80 ML Vital Signs/I&O 01/10/21 19:28 Temp 36.8 Pulse 81 Resp 18 B/P (MAP) 146/109 (121) Pulse Ox 98 O2 Delivery Room Air Progress Progress Note : Progress Note GIVEN ASPIRIN AND NTG X 1--PT STATES PAIN IS GONE, BUT PAIN HAS BEEN COMING AND GOING ON IT'S OWN ALL DAY NO COMPLAINTS OF PAIN FOR REMAINDER OF ER STAY PT OBSERVED IN ER AND 3 HOUR REPEAT TROPONIN AND EKG DONE MUCH DELAY IN OBTAINING AND THEN RECEIVING REPORT ON CT SCAN. Initial ECG Impression Date: Jan 10, 2021 Initial ECG Impression Time: 19:33 Initial ECG Rate: 82 Initial ECG Rhythm: Normal Sinus Initial ECG Comparisson: No Previous ECG Available Diagnostic Imaging Comments CXR-- CT CHEST ANGIOGRAM-- Reviewed: Reviewed by Me Departure Impression Primary Impression: Left-sided chest pain Disposition: HOME, SELF-CARE Condition: Improved Departure-Patient Inst. Decision time for Depature: 23:55 Referrals: NO,LOCAL PHYSICIAN (PCP/Family) Primary Care Physician Patient Instructions: Chest Pain Add. Discharge Instructions: HOME, REST FOLLOW UP WITH YOUR DR IN 2-3 DAYS FOR FURTHER CARE, RETURN TO ER IF SYMPTOMS WORSEN All discharge instructions reviewed with patient and/or family. Voiced understanding. Scripts Naproxen (Naproxen) 500 Mg Tablet. 500 MG PO BID, #20 TAB Prov: LAURA CASTILLO DO 01/10/21 LAURA CASTILLO DO Jan 10, 2021 20:16
[2021-01-10 20:18] LABS: CREATINE KINASE MB 1.1 NG/ML (<6.6)
[2021-01-10 20:27] LABS: INR 0.9 (0.8-1.4)
--- NOTE | 2021-01-10 20:30 | Diagnostic Imaging Report ---
EXAM: CHEST 1 VIEW, AP/PA ONLY INDICATION: Chest pain. Left arm numbness. COMPARISON: 06/06/2012. FINDINGS: Normal heart size and pulmonary vascularity. No dense consolidation, pleural effusion or pneumothorax. No acute osseous findings. IMPRESSION: Negative chest. Dictated by: Dictated on workstation # [id number]
[2021-01-10 20:38] LABS: AMPHETAMINE SCREEN, URINE NEGATIVE (NEGATIVE); BARBITURATE SCREEN URINE NEGATIVE (NEGATIVE); BENZODIAZEPINES SCREEN URINE NEGATIVE (NEGATIVE); CANNABINOID SCREEN, URINE NEGATIVE (NEGATIVE); COCAINE SCREEN URINE NEGATIVE (NEGATIVE); METHADONE STAT NEGATIVE (NEGATIVE); METHAMPHETAMINE SCREEN URINE S NEGATIVE (NEGATIVE); OPIATE SCREEN URINE NEGATIVE (NEGATIVE); OXYCODONE STAT NEGATIVE (NEGATIVE); PROPOXYPHENE STAT NEGATIVE (NEGATIVE); TRICYCLIC ANTIDEPRESSANTS SCRE NEGATIVE (NEGATIVE)
[2021-01-10] MEDS ORDERED: HOLD METFORMIN - RECEIVED CONTRAST 20 ML VIAL IV SCH (21:00)
[2021-01-10] MEDS ORDERED: IOHEXOL 350 MG/ML 100 ML (OMNIPAQUE 350) VIAL IV ONE (21:00)
[2021-01-10] MEDS ORDERED: NS 100 ML (IVPB) BAG IV ONE (21:00)
--- NOTE | 2021-01-10 23:45 | Diagnostic Imaging Report ---
PROCEDURE: CT angiography of the chest with contrast. TECHNIQUE: Multiple contiguous axial images were obtained through the chest after uneventful bolus administration of intravenous contrast. 3D reconstructed CTA MIP acquisitions were also performed. Auto Exposure Controls were utilized during the CT exam to meet ALARA standards for radiation dose reduction. INDICATION: Shortness of air. Cough. Chest pain. COMPARISON: Chest radiograph 12/10/2018. FINDINGS: No pulmonary artery filling defects. Normal caliber thoracic aorta. Normal heart size. No pericardial effusion. No lymphadenopathy. The lungs are clear. No pleural effusion or pneumothorax. No acute osseous findings. Visualized upper abdominal contents are negative. IMPRESSION: 1. No pulmonary emboli. 2. No acute CT findings in the chest. Dictated by: Dictated on workstation # [id number]
[2021-01-10] MEDS ORDERED: RX-NAPROXEN (NAPROSYN) 250 MG TAB PPK#4 PO STA (23:55)
[2021-01-10] MEDS ORDERED: NAPR500T8 PO (23:57)
[2021-01-11 00:01] VITALS: BP 122/78
== END 2021-01-11 00:01 | disposition home or self-care (01) ==
LOC: EDUNIT# 19:21 → ER 19:22
DX: R07.9 Chest pain, unspecified (principal); F17.210 Nicotine dependence, cigarettes, uncomplicated
CPT/HCPCS: 36415; 71045; 71275; 80053; 80306; 82150; 82550; 82553; 83690; 83735; 83874; 83880; 84484; 85025; 85610; 85730; 93005; 93041

== ENCOUNTER 2021-02-15 09:44 | Emergency (ER) | payer OTHER ==
[~2021-02-15] VITALS: Ht 182 cm; Wt 88.0 kg
[~2021-02-15 09:44] MED LIST changes: +NAPR500T8 PO
[2021-02-15 10:17] LABS: BASOPHILS % (AUTO) 1 % (0-10); EOSINOPHILS # (AUTO) 0.1 10^3/uL (0.0-0.3); EOSINOPHILS % (AUTO) 2 % (0-10); HEMATOCRIT 51 % (40-54); HEMOGLOBIN 16.5 g/dL (13.3-17.7); LYMPHOCYTES # (AUTO) 1.3 10^3/uL (1.0-4.0); LYMPHOCYTES % (AUTO) 27 % (12-44); MEAN CORPUSCULAR HEMOGLOBIN 32 pg (25-34); MEAN CORPUSCULAR HGB CONC 33 g/dL (32-36); MEAN CORPUSCULAR VOLUME 99 fL (80-99); MEAN PLATELET VOLUME 8.9 fL (9.0-12.2); MONOCYTES # (AUTO) 0.4 10^3/uL (0.0-1.0); MONOCYTES % (AUTO) 8 % (0-12); NEUTROPHILS # (AUTO) 3.1 10^3/uL (1.8-7.8); NEUTROPHILS % (AUTO) 62 % (42-75); PLATELET COUNT 204 10^3/uL (130-400)
[2021-02-15 10:42] LABS: BILIRUBIN,URINE NEGATIVE (NEGATIVE); CLARITY,URINE CLEAR; COLOR,URINE YELLOW; GLUCOSE, URINE (UA) NEGATIVE (NEGATIVE); KETONES,URINE 1+ (NEGATIVE); LEUKOCYTE ESTERASE ,URINE NEGATIVE (NEGATIVE); NITRITE,URINE NEGATIVE (NEGATIVE); PROTEIN,URINE NEGATIVE (NEGATIVE)
[2021-02-15 10:48] LABS: ALBUMIN 4.4 GM/DL (3.2-4.5); POTASSIUM 4.4 MMOL/L (3.6-5.0)
[2021-02-15 10:49] LABS: CALCIUM 9.1 MG/DL (8.5-10.1)
[2021-02-15 10:51] LABS: BACTERIA,URINE NEGATIVE /HPF; SQUAMOUS EPITHELIAL CELL,UR RARE /HPF; WBC,URINE RARE /HPF
[2021-02-15 10:51] LABS: TOTAL PROTEIN 7.5 GM/DL (6.4-8.2)
[2021-02-15 10:52] LABS: BILIRUBIN,TOTAL 0.8 MG/DL (0.1-1.0)
[2021-02-15 10:54] LABS: CREATININE SERUM 0.94 MG/DL (0.60-1.30)
[2021-02-15] MEDS ORDERED: NS 100 ML (IVPB) BAG IV ONE (12:00)
[2021-02-15] MEDS ORDERED: HOLD METFORMIN - RECEIVED CONTRAST 20 ML VIAL IV SCH (12:00)
[2021-02-15] MEDS ORDERED: IOHEXOL 350 MG/ML 100 ML (OMNIPAQUE 350) VIAL IV ONE (12:00)
--- NOTE | 2021-02-15 12:25 | Diagnostic Imaging Report ---
CLINICAL INDICATION: Patient complains of abdominal pain tonight intense since Sunday night. Patient was seen at urgent care and given GI cocktail and Toradol. EXAM: Axial CT scan of the abdomen and pelvis performed with 100 cc of Omnipaque 350 IV contrast. Sagittal and coronal reformatted images are created. Auto Exposure Controls were utilized during the CT exam to meet ALARA standards for radiation dose reduction. COMPARISON: Right upper quadrant ultrasound dated 10/25/2020. FINDINGS: There is mild atelectasis involving the posterior aspects of both lung bases. Likely bone island involving the left proximal femur. There is a sclerotic area involving the right L5 pars interarticularis region with no current defects seen. The liver, spleen, pancreas, gallbladder, and adrenal glands are unremarkable. Both kidneys are unremarkable with no stones, mass or hydronephrosis. The bladder is fluid filled and otherwise unremarkable. There is a [id number] amount of stool in the rectosigmoid region. There are diverticula involving the transverse colon and descending colon and sigmoid colon with no CT evidence of diverticulitis. There is wall thickening of the stomach and the stomach is decompressed and these findings are nonspecific. There is no intestinal obstruction. There is no intra-abdominal free air or free fluid. There are multiple subcentimeter short axis lymph nodes in the mesenteric and pericecal region. The appendix is unremarkable. The extra-abdominal and extrapelvic soft tissue structures are unremarkable. IMPRESSION: 1: There are multiple subcentimeter short axis lymph nodes in the mesenteric and pericecal region which may be related to mesenteric adenitis. 2: There is diverticulosis with no CT evidence of diverticulitis. 3: The remainder of this exam is unremarkable for acute finding. The appendix is unremarkable. Dictated by: Dictated on workstation # [id number]
[2021-02-15] MEDS ORDERED: FAMOTIDINE 20MG/2ML IV (PEPCID) IVP ONE (12:45)
[2021-02-15] MEDS ORDERED: OMEP20CA18 PO (13:00)
[2021-02-15] MEDS ORDERED: SUCR1TAB36 PO (13:00)
--- NOTE | 2021-02-15 13:01 | ED Abdominal Pain ---
General Chief Complaint: Abdominal/GI Problems Stated Complaint: ABD/BACK PAIN Nursing Triage Note: PT CO OF ABD PAIN 12/05 SINCE SUNDAY NIT. PT WAS SEEN AT [facility] GIVEN GI COCKTAIL AND TORDOL 60MG IM AND SENT TO ED Source of Information: Patient Exam Limitations: No Limitations History of Present Illness Date Seen by Provider: Feb 15, 2021 Time Seen by Provider: 09:55 Initial Comments This 35-year-old gentleman presents to the emergency room via private vehicle with complaints of upper abdominal pain. This pain has been present for several months intermittently but has become much more severe recently. He reports pain is high as 10 out of 10 on the pain scale. He was supposed to have endoscopy last Sunday but discovered it would be too expensive on his current insurance plan. He did not go through with the endoscopy. He has been seeing the medical provider at his employer. He has had multiple evaluations including gallbladder ultrasound and HIDA scan which were negative. Pain has been intense and persistent for the past 3 days. He was seen at the clinic today and given a GI cocktail. That did not improve his pain so he presented to the ER at their direction. He states taking omeprazole in the past has not been very helpful. He denies any notable exacerbating or alleviating factors other than some worsening of the pain with movement. He does admit to chewing tobacco and drinking 3-4 beers daily. He has not noted that periods of time with abstinence improve the pain. He also describes symptoms of heartburn. He often feels bloated. He denies any nausea, vomiting, diarrhea, constipation, or urinary changes. Allergies and Home Medications Allergies Coded Allergies: No Known Drug Allergies (Unverified , 08/25/09) Patient Home Medication List Home Medication List Reviewed: Yes Naproxen (Naproxen) 500 Mg Tablet., 500 MG PO BID Prescribed by: LAURA CASTILLO on 01/10/21 1417 Omeprazole (Omeprazole) 20 Mg Capsule., 20 MG PO BID Prescribed by: VIRA BAER on 02/15/21 1300 Ondansetron (Zofran Odt) 8 Mg Tab.rapdis, 8 MG PO Q6H PRN for NAUSEA/VOMITING- 1ST LINE Prescribed by: TERRELL DAVIDSON on 06/10/16 1141 Prednisone (Prednisone) 20 Mg Tab, (Reported) Entered as Reported by: CAMERON BOWMAN on 06/10/16 1032 Sucralfate (Carafate) 1 Gm Tablet, 1 GM PO QID Prescribed by: VIRA BAER on 02/15/21 1300 Review of Systems Review of Systems Constitutional: no symptoms reported EENTM: No Symptoms Reported Respiratory: No Symptoms Reported Cardiovascular: No Symptoms Reported Gastrointestinal: See HPI Genitourinary: No Symptoms Reported Musculoskeletal: no symptoms reported Skin: no symptoms reported Psychiatric/Neurological: No Symptoms Reported Endocrine: No Symptoms Reported Hematologic/Lymphatic: No Symptoms Reported Past Fbbexfl-Wrlmdt-Xaopbw Hx Patient Social History Tobacco Use?: Yes Smokeless Tobacco Frequency: Current Everyday User Substance use?: No Alcohol Use?: Yes Alcohol type: Beer Alcohol Frequency: Daily Pt feels they are or have been: No Immunizations Up To Date Tetanus Booster (TDap): Unknown PED Vaccines UTD: Yes Seasonal Allergies Seasonal Allergies: No Past Medical History Surgeries: Yes (LT ARM TRAUMA, "NECK GLANDS FROM ", right eye) Eye Surgery (Prosthetic right eye), Orthopedic Respiratory: No Cardiac: No Neurological: No Reproductive Disorders: No Genitourinary: No Gastrointestinal: Yes Gastroesophageal Reflux Musculoskeletal: Yes (LEFT ARM INJURY) Endocrine: No HEENT: Yes (RIGHT EYE TRAUMA/ENUCLEATION/FALSE EYE) Cancer: No Psychosocial: No Integumentary: No Blood Disorders: No Family Medical History SOCIAL HISTORY: -SMOKES CIGARETTES SOMETIMES, CHEWS DAILY -DENIES DRUG USE -DRINKS ALCOHOL DAILY--"3-4 DRINKS" A DAY--HARD LIQUOR/BEER PAST SURGICAL HISTORY: -RIGHT EYE REMOVED/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 oz. 86.109122te; 26.00 BMI Method:Stated General Appearance: WD/WN, no apparent distress HEENT: normal ENT inspection, other (Prosthetic right eye) Neck: normal inspection Respiratory: chest non-tender, lungs clear, normal breath sounds, no respiratory distress, no accessory muscle use Cardiovascular: regular rate, rhythm, no edema, no murmur Gastrointestinal: soft; No distended; tenderness (Epigastrium) Extremities: normal inspection, no pedal edema Neurologic/Psychiatric: air hole driller II-XII nml as tested, no motor/sensory deficits, alert, normal mood/affect, oriented x 3 Skin: normal color, warm/dry Progress/Results/Core Measures Results/Orders Lab Results Laboratory Tests Test 02/15/21 10:05 02/15/21 10:39 Range/Units White Blood Count 5.0 4.3-11.0 10^3/uL Red Blood Count 5.12 4.30-5.52 10^6/uL Hemoglobin 16.5 13.3-17.7 g/dL Hematocrit 51 40-54 % Mean Corpuscular Volume 99 80-99 fL Mean Corpuscular Hemoglobin 32 25-34 pg Mean Corpuscular Hemoglobin Concent 33 32-36 g/dL Red Cell Distribution Width 12.4 10.0-14.5 % Platelet Count 204 130-400 10^3/uL Mean Platelet Volume 8.9 L 9.0-12.2 fL Immature Granulocyte % (Auto) 0 % Neutrophils (%) (Auto) 62 42-75 % Lymphocytes (%) (Auto) 27 12-44 % Monocytes (%) (Auto) 8 0-12 % Eosinophils (%) (Auto) 2 0-10 % Basophils (%) (Auto) 1 0-10 % Neutrophils # (Auto) 3.1 1.8-7.8 10^3/uL Lymphocytes # (Auto) 1.3 1.0-4.0 10^3/uL Monocytes # (Auto) 0.4 0.0-1.0 10^3/uL Eosinophils # (Auto) 0.1 0.0-0.3 10^3/uL Basophils # (Auto) 0.0 0.0-0.1 10^3/uL Immature Granulocyte # (Auto) 0.0 0.0-0.1 10^3/uL Sodium Level 139 135-145 MMOL/L Potassium Level 4.4 3.6-5.0 MMOL/L Chloride Level 104 98-107 MMOL/L Carbon Dioxide Level 22 21-32 MMOL/L Anion Gap 13 5-14 MMOL/L Blood Urea Nitrogen 11 7-18 MG/DL Creatinine 0.94 0.60-1.30 MG/DL Estimat Glomerular Filtration Rate 92 BUN/Creatinine Ratio 12 Glucose Level 91 70-105 MG/DL Calcium Level 9.1 8.5-10.1 MG/DL Corrected Calcium 8.8 8.5-10.1 MG/DL Total Bilirubin 0.8 0.1-1.0 MG/DL Aspartate Amino Transf (AST/SGOT) 21 5-34 U/L Alanine Aminotransferase (ALT/SGPT) 16 0-55 U/L Alkaline Phosphatase 54 40-136 U/L C-Reactive Protein High Sensitivity 0.09 0.00-0.50 MG/DL Total Protein 7.5 6.4-8.2 GM/DL Albumin 4.4 3.2-4.5 GM/DL Lipase 21 8-78 U/L Urine Color YELLOW Urine Clarity CLEAR Urine pH 6.0 5-9 Urine Specific [place] 1.025 H 1.016-1.022 Urine Protein NEGATIVE NEGATIVE Urine Glucose (UA) NEGATIVE NEGATIVE Urine Ketones 1+ H NEGATIVE Urine Nitrite NEGATIVE NEGATIVE Urine Bilirubin NEGATIVE NEGATIVE Urine Urobilinogen 0.2 < = 1.0 MG/DL Urine Leukocyte Esterase NEGATIVE NEGATIVE Urine RBC (Auto) NEGATIVE NEGATIVE Urine RBC NONE /HPF Urine WBC RARE /HPF Urine Squamous Epithelial Cells RARE /HPF Urine Crystals NONE /LPF Urine Bacteria NEGATIVE /HPF Urine Casts NONE /LPF Urine Mucus SMALL H /LPF Urine Culture Indicated NO My Orders Orders - VIRA QUEEN MD Cbc With Automated Diff (02/15/21 09:55) Comprehensive Metabolic Panel (02/15/21 09:55) Hs C Reactive Protein (02/15/21 09:55) Lipase (02/15/21 09:55) Ua Culture If Indicated (02/15/21 09:55) Ed Iv/Invasive Line Start (02/15/21 09:55) Ct Abdomen/Pelvis W (02/15/21 11:43) Iohexol Injection (Omnipaque 350 Mg/Ml 1 (02/15/21 12:00) Received Contrast (Hold Metformin- Contr (02/15/21 12:00) Ns (Ivpb) (Sodium Chloride 0.9% Ivpb Bag (02/15/21 12:00) Famotidine Injection (Pepcid Injection) (02/15/21 12:45) Medications Given in ED Vital Signs/I&O 12/21/21 12/21/21 09:55 13:17 Temp 35.9 Pulse 91 84 Resp 18 18 B/P (MAP) 143/89 (107) 128/79 Pulse Ox 98 98 Blood Pressure Mean: 107 Progress Progress Note : Progress Note Lab evaluation was unremarkable. Patient was offered further evaluation with CT scan which he agreed to. CT showed no definite etiology for his pain. I stressed the importance of pursuing endoscopy. I advised him to fill out president financial institution paperwork and perhaps pursue endoscopy with is [facility] surgeon. This may be more cost effective for him. In the meantime he is to take PPI and Carafate therapy. Dietary restrictions were also reviewed with him. He was strongly advised to quit drinking alcohol. I offered Ativan to help him combat withdrawal symptoms. He prefers to taper slowly. Diagnostic Imaging Diagonstic Imaging: CT Plain Films/CT/US/NM/MRI: abdomen, pelvis Comments CT abdomen pelvis viewed by me and report reviewed. See report below: NAME: RADHA ARRIAGA MED REC#: [id number] PT STATUS: DEP ER : 1985 PHYSICIAN: VIRA QUEEN MD ADMIT DATE: 02/15/21/ER Signed Date of Exam:02/15/21 CT ABDOMEN/PELVIS W CLINICAL INDICATION: Patient complains of abdominal pain tonight intense since Sunday night. Patient was seen at urgent care and given GI cocktail and Toradol. EXAM: Axial CT scan of the abdomen and pelvis performed with 100 cc of Omnipaque 350 IV contrast. Sagittal and coronal reformatted images are created. Auto Exposure Controls were utilized during the CT exam to meet ALARA standards for radiation dose reduction. COMPARISON: Right upper quadrant ultrasound dated 10/25/2020. FINDINGS: There is mild atelectasis involving the posterior aspects of both lung bases. Likely bone island involving the left proximal femur. There is a sclerotic area involving the right L5 pars interarticularis region with no current defects seen. The liver, spleen, pancreas, gallbladder, and adrenal glands are unremarkable. Both kidneys are unremarkable with no stones, mass or hydronephrosis. The bladder is fluid filled and otherwise unremarkable. There is a afxye-xw-wrxdeimy amount of stool in the rectosigmoid region. There are diverticula involving the transverse colon and descending colon and sigmoid colon with no CT evidence of diverticulitis. There is wall thickening of the stomach and the stomach is decompressed and these findings are nonspecific. There is no intestinal obstruction. There is no intra-abdominal free air or free fluid. There are multiple subcentimeter short axis lymph nodes in the mesenteric and pericecal region. The appendix is unremarkable. The extra-abdominal and extrapelvic soft tissue structures are unremarkable. IMPRESSION: 1: There are multiple subcentimeter short axis lymph nodes in the mesenteric and pericecal region which may be related to mesenteric adenitis. 2: There is diverticulosis with no CT evidence of diverticulitis. 3: The remainder of this exam is unremarkable for acute finding. The appendix is unremarkable. Dictated by: Dictated on workstation # [id number] Dict: 02/15/21 1205 Trans: 02/15/21 1744 [id number] Interpreted by: ESTEFANIA COLLADO MD Electronically signed by: ESTEFANIA COLLADO MD 02/15/214 Departure Impression Primary Impression: Upper abdominal pain Disposition: 01 HOME, SELF-CARE Condition: Stable Departure-Patient Inst. Decision time for Depature: 12:55 Referrals: KOKO SHIPLEY BRETT D DO NO,LOCAL PHYSICIAN (PCP) Primary Care Physician Patient Instructions: Acid Reflux and Gastroesophageal Reflux Disease in Adults, Gastritis (DC), Severe Abdominal Pain, Adult (DC) Add. Discharge Instructions: Start taking omeprazole 20 mg twice daily along with Carafate as prescribed. Take these medications continuously until you are instructed by your doctor or a surgeon to stop. Work toward tapering alcohol consumption and eventually quit after tapering off for 1 to 2 weeks. If you are unable to stop on your own, please seek assistance. Avoid the following: Eating large meals, eating close to bedtime, caffeine, carbonation, citrus fruits and juices, chocolate, tomato products, tobacco, alcohol, spicy foods, fatty or greasy foods, NSAID medications such as ibuprofen or naproxen, or anything else you know irritates your stomach. You may take Tylenol (acetaminophen) up to 1000 mg every 6 hours as needed for pain. You may additionally try Tums per package instructions. Seek referral to a surgeon for endoscopy (scoping of your stomach and esophagus). A list of [facility] surgeons as below. Inquire about president financial institution paperwork at the registration desk. Call with questions or concerns. Return to the ER if you have worsening symptoms. All discharge instructions reviewed with patient and/or family. Voiced understanding. Scripts Sucralfate (Carafate) 1 Gm Tablet 1 GM PO QID, #120 TAB 2 Refills Dissolve or crush and mix into 5 to 10 mL water to make a slurry. Take 30 minutes before meals and bedtime. Prov: VIRA QUEEN MD 02/15/21 Omeprazole (Omeprazole) 20 Mg Capsule. 20 MG PO BID, #60 CAP 2 Refills Prov: VIRA QUEEN MD 02/15/21 VIRA QUEEN MD Feb 15, 2021 13:01
[2021-02-15 13:17] VITALS: BP 128/79
== END 2021-02-15 13:17 | disposition home or self-care (01) ==
LOC: EDUNIT# 09:44 → ER 09:46
DX: K21.9 Gastro-esophageal reflux disease without esophagitis (principal); R10.13 Epigastric pain; F17.290 Nicotine dependence, other tobacco product, uncomplicated
CPT/HCPCS: 36415; 74177; 80053; 81000; 83690; 85025; 86141

== ENCOUNTER 2021-03-04 05:29 | Outpatient (RCR) | payer OTHER ==
[~2021-03-04] VITALS: Ht 182.9 cm; Wt 88.8 kg
[~2021-03-04 05:29] MED LIST changes: +CYCL1DRO OP; +HYDR50TA76 PO; +OMEP20CA18 PO; +SUCR1TAB36 PO
[2021-03-08] MEDS ORDERED: PANT40TA2 PO (09:56)
== END 2021-03-04 09:35 | disposition home or self-care (01) ==
LOC: PREOP 05:29
PROVIDERS: ATTEND Surgery
DX: K21.9 Gastro-esophageal reflux disease without esophagitis (principal); Z20.822 Contact with and (suspected) exposure to COVID-19
CPT/HCPCS: 87635

== ENCOUNTER → 2021-03-08 | Day surgery (SDC) | payer OTHER ==
[~2021-03-08] VITALS: Ht 182 cm; Wt 88.0 kg
[~2021-03-08] MED LIST changes: +ACET325T38 PO; +CETI10TA49 PO; +HURRICAINE EXT TUBE (BENZOCAINE) XX PRN; +LACTATED RINGERS 1,000 ML IV ONE; +LACTATED RINGERS 1,000 ML IV STA; +MIDAZOLAM 2 MG/2 ML (VERSED) VIAL ONE; +PANT40TA2 PO; +proPOfol 200 MG/20 ML (DIPRIVAN) VIAL IV ONE
[2021-03-08 08:20] VITALS: BP 127/94
--- NOTE | 2021-03-08 08:27 | Progress Note-Pre Operative ---
Pre-Operative Progress Note H&P Reviewed The H&P was reviewed, patient examined and no changes noted. Date Seen by Provider: Mar 08, 2021 Time Seen by Provider: 08: Date H&P Reviewed: Mar 08, 2021 Time H&P Reviewed: 08:27 Pre-Operative Diagnosis: chronic gerd, epigastric pain FARHAN LARES DO Mar 08, 2021 08:27
[2021-03-08 09:50] VITALS: BP 100/65
--- NOTE | 2021-03-08 09:54 | Progress Note-Post Operative ---
Post-Operative Progess Note Surgeon (s)/Sequencing Machine Operator (s) Surgeon FARHAN LARES DO Sequencing Machine Operator: NA Pre-Operative Diagnosis chronic gerd, epigastric pain Post-Operative Diagnosis Reflux esophagitis Procedure & Operative Findings Date of Procedure 03/08/21 Procedure Performed/Findings EGD c biopsies Anesthesia Type Per FLOW COORDINATOR Estimated Blood Loss Estimated blood loss (mL): none Specimens/Packing Specimens Removed GE and antral biopsies FARHAN LARES DO Mar 08, 2021 09:54
[2021-03-08 09:55] VITALS: BP 100/67
--- NOTE | 2021-03-08 09:57 | Discharge Inst-Simple/Standard ---
Discharge Inst-Standard Discharge Medications New, Converted or Re-Newed RX: Transmitted to Pharmacy Patient Instructions/Follow Up Plan of Care/Instructions/FU: 2 weeks Pancho Activity as Tolerated: Yes Discharge Diet: Regular Diet FARHAN LARES DO Mar 08, 2021 09:57
[2021-03-08 10:10] VITALS: BP 109/79
--- NOTE | 2021-03-08 13:22 | Anesthesia-General Post-Op ---
MAC Patient Condition Mental Status/LOC: Same as Preop Cardiovascular: Satisfactory Nausea/Vomiting: Absent Respiratory: Satisfactory Pain: Controlled Complications: Absent Post Op Complications Complications None Follow Up Care/Instructions Patient Instructions None needed. Anesthesiology Discharge Order Discharge Order Patient is doing well, no complaints, stable vital signs, no apparent adverse anesthesia problems. No complications reported per nursing. HARRIETT PIERCE CRNA Mar 08, 2021 13:22
--- NOTE | 2021-03-08 14:43 | OPERATIVE REPORT ---
DATE OF SERVICE: 03/08/2021 PREOPERATIVE DIAGNOSES: Gastroesophageal reflux disease, epigastric abdominal pain. POSTOPERATIVE DIAGNOSIS: Reflux esophagitis. PROCEDURE: EGD with biopsies. SURGEON: Farhan Deleon DO ANESTHESIA: Per EDUCATION ADVISER. ESTIMATED BLOOD LOSS: None. COMPLICATIONS: None. INDICATIONS: The patient is a 35-year-old male with long-standing GERD symptoms and having epigastric abdominal pain. He understands risks and benefits of procedure and wishes to proceed. Consent was signed in the chart. DESCRIPTION OF PROCEDURE: The patient was taken to endoscopy suite, placed in left lateral recumbent position. Timeout was performed. Scope was inserted in mouth, down the esophagus, stomach and into the duodenum without difficulty. There were no polyps, masses or ulcerations within the duodenum. Scope was slowly retracted back into the stomach where it was further insufflated. No polyps, masses or ulcerations within the stomach. Biopsy of the antrum was obtained. Scope was retroflexed noting no other pathology. Scope was returned to its normal position, slowly withdrawn to distal esophagus. Some slight erythematous changes. Biopsy of the GE junction was obtained. No polyps, masses or ulcerations. Scope was slowly retracted back until completely removed. The patient tolerated procedure well without any complications, taken to recovery room in stable condition. RECOMMENDATIONS: The patient will stop omeprazole and started on Protonix 40 mg daily. We will follow up in the office in a couple of weeks. If symptoms not improved, we would consider gallbladder workup and may need a cholecystectomy. Job ID: [id number] DocumentID: [id number] Dictated Date: 03/08/2021 10:05:03 Raveler Date: 03/08/2021 14:42:48 Dictated By: FARHAN DELEON DO [facility]
== END | disposition home or self-care (01) ==
LOC: ENDO 07:52
PROVIDERS: ATTEND Surgery
DX: K21.00 Gastro-esophageal reflux disease with esophagitis, without bleeding (principal); F41.9 Anxiety disorder, unspecified; Z91.14 Patient's other noncompliance with medication regimen
CPT/HCPCS: 88305

== ENCOUNTER 2021-04-07 05:34 | Outpatient (CLI) | payer OTHER ==
[~2021-04-07] VITALS: Ht 182.9 cm
[~2021-04-07 05:34] MED LIST changes: -ACET325T38 PO; -CETI10TA49 PO; -HURRICAINE EXT TUBE (BENZOCAINE) XX PRN; -LACTATED RINGERS 1,000 ML IV ONE; -LACTATED RINGERS 1,000 ML IV STA; -MIDAZOLAM 2 MG/2 ML (VERSED) VIAL ONE; -proPOfol 200 MG/20 ML (DIPRIVAN) VIAL IV ONE
[2021-04-11] MEDS ORDERED: SUCR1TAB36 PO (10:27)
[2021-04-11] MEDS ORDERED: OMEP20CA18 PO (10:27)
[2021-04-11] MEDS ORDERED: CETI10TA49 PO (10:27)
[2021-04-11] MEDS ORDERED: ACET325T38 PO (10:27)
== END 2021-04-11 10:33 | disposition home or self-care (01) ==
LOC: PREOP 05:34
PROVIDERS: ATTEND Surgery
DX: Z01.818 Encounter for other preprocedural examination (principal)

== ENCOUNTER 2021-04-14 05:58 | Day surgery (SDC) | payer OTHER ==
[~2021-04-14] VITALS: Ht 182 cm; Wt 84.0 kg
[2021-04-14] VITALS (10 sets, daily range): BP systolic 103–130; BP diastolic 53–90
[~2021-04-14 05:58] MED LIST changes: +ACET325T38 PO; +CETI10TA49 PO
[2021-04-14] MEDS ORDERED: ceFAZolin 2 GM IV Premixed 50 ML IV ONE (06:15)
[2021-04-14] MEDS: LACTATED RINGERS 1,000 ML IV PRN ×2 (07:00→08:30)
[2021-04-14] MEDS ORDERED: LIDOCAINE/EPI 1%-1:200,000 (XYLOCAINE) 30 ML VIAL ONE (07:19)
[2021-04-14] MEDS ORDERED: GLYCOPYRROLATE 0.2 MG/ML (ROBINUL) 2 ML VIAL ONE (07:29)
[2021-04-14] MEDS ORDERED: NEOSTIGMINE 3 MG/3 ML VIAL ONE (07:29)
[2021-04-14] MEDS ORDERED: LIDOCAINE PF 2% 5 ML (XYLOCAINE) VIAL ONE (07:29)
[2021-04-14] MEDS ORDERED: ONDANSETRON 4 MG/2 ML (SDV) Z0FRAN ONE (07:29)
[2021-04-14] MEDS ORDERED: proPOfol 200 MG/20 ML (DIPRIVAN) VIAL IV ONE (07:29)
[2021-04-14] MEDS ORDERED: fentaNYL INJ 100 MCG/2 ML AMP ONE (07:29)
[2021-04-14] MEDS ORDERED: ROCURONIUM 10 MG/ML 5 ML SYRINGE IV ONE (07:29)
[2021-04-14] MEDS ORDERED: MIDAZOLAM 2 MG/2 ML (VERSED) VIAL ONE (07:29)
--- NOTE | 2021-04-14 08:13 | Progress Note-Pre Operative ---
Pre-Operative Progress Note H&P Reviewed The H&P was reviewed, patient examined and no changes noted. Date Seen by Provider: Apr 14, 2021 Time Seen by Provider: 08:12 Date H&P Reviewed: Apr 14, 2021 Time H&P Reviewed: 08:12 Pre-Operative Diagnosis: epigastric abd pain, biliary dyskinesia FARHAN LARES DO Apr 14, 2021 08:13
--- NOTE | 2021-04-14 08:58 | Progress Note-Post Operative ---
Post-Operative Progess Note Surgeon (s)/Tinner Automatic (s) Surgeon FARHAN LARES DO Tinner Automatic: Dr. Madison to assist in retraction dissection and closure. Pre-Operative Diagnosis epigastric abd pain, biliary dyskinesia Post-Operative Diagnosis same Procedure & Operative Findings Date of Procedure 04/14/21 Procedure Performed/Findings PROCEDURE: Laparoscopic cholecystectomy with intraoperative cholangiogram. COMPLICATIONS: None. PROCEDURE: The patient was taken to the operating suite and was prepped and draped in sterile fashion. A surgical pause was performed. Just superior to the umbilicus, a 12 mm incision was made. Dissection was taken down to the fascia, which was then scored and grasped with a Simeon and the abdomen was then entered. A 0 Vicryl suture was placed in a [id number] fashion and a Gonzalez trocar was placed and secured. Pneumoperitoneum was achieved. A 5mm trochar place in the subxyphoid and 2 in the right upper quadrant. The gallbladder was then grasped and elevated. The cystic duct, and cystic artery were then dissected out. Clip was placed on the distal portion of the cystic duct which was then partially transected. An arrow catheter was inserted into the duct. The cholangiogram was then performed. No filing defects and contrast made its way into the duodenum. Catheter removed. Clips were placed on proximal portion of the cystic duct and then the duct was then transected. Clips were placed along the proximal and distal portion of the cystic artery which was then transected. Hook cautery was used to dissect the gallbladder from the gallbladder fossa achieving hemostasis. The gallbladder was placed in an Endobag and removed through the 12 mm trocar site. The abdomen was then reinspected. Copious amounts of irrigation were used to irrigate the abdomen and there were no signs of active bleeding. Hemostasis had been achieved. The 12 mm fascial defect was then closed with 0 Vicryl suture that had been placed in a uailio-ax-yxxvm fashion. The abdomen was then desufflated, the trocars were removed. The abdomen was then washed and dried. The skin was then closed using 4-0 Monocryl in a subcuticular fashion. The abdomen was washed and dried and Skin Affix was place over incisions. Patient tolerated the procedure well without any complications and was taken to the recovery room in stable condition. Anesthesia Type general Estimated Blood Loss Estimated blood loss (mL): minimal Specimens/Packing Specimens Removed gallbladder FARHAN LARES DO Apr 14, 2021 08:58
[2021-04-14] MEDS ORDERED: ACHD5005 PO (09:00)
[2021-04-14] MEDS ORDERED: DOCU-143 PO (09:00)
--- NOTE | 2021-04-14 09:00 | Discharge Inst-Simple/Standard ---
Discharge Inst-Standard Discharge Medications New, Converted or Re-Newed RX: Transmitted to Pharmacy Patient Instructions/Follow Up Plan of Care/Instructions/FU: 2-3 weeks Pancho Activity as Tolerated: No Discharge Diet: Regular Diet Other Inst to Patient Follow up Appt: Make appointment for 2-3 weeks. Instructions: No lifting greater than 10 pounds. No strenuous activity. May shower in 24 hours, no tub bath or soaking. Use incentive spirometer at home as directed. No Smoking Skin/Wound Care: You have special glue over incision, it will fall off on it's own. Symptoms to Report: Appetite Changes, Extremity Discoloration, Numbness/Tingling, Swelling Increased, Bleeding Excessive, Eyesight Changes, Pain Increased, Urine Color Change, Constipation(Persistent), Fever over 101 degree F, Pain/Pressure in chest, Urinating Difficulty, Cough Up/Vomit Blood, Heart Beat Irreg/Pounding, Pain/Pressure in jaw, Vaginal Bleeding Increase, Cramps in feet or legs, Lightheadedness, Pain/Pressure in shoulder, Diarrhea(Persistent), Memory Changes Suddenly, Questions/Concerns, Weight gain consecutive days, Dizziness/Fainting, Nausea/Vomiting, Shortness of Breath, Weight gain over 2 pounds. If eyes or skin turn yellow notify physician. If questions or concerns contact your physician Or seek help at emergency department. FARHAN LARES DO Apr 14, 2021 09:00
[2021-04-14] MEDS ORDERED: HYDROmorphone 2 MG/ML VIAL (DILAUDID) ONE (09:18)
[2021-04-14] MEDS ORDERED: HYDROmorphone 2 MG/ML VIAL (DILAUDID) IV ONE (09:30)
[2021-04-14] MEDS ORDERED: ONDANSETRON 4 MG/2 ML (SDV) Z0FRAN IVP PRN (09:30)
[2021-04-14] MEDS ORDERED: morphine INJ 10 MG/ML 1ML (SYR OR VIAL) IVP ONE (09:30)
[2021-04-14] MEDS ORDERED: SEVOFLURANE (ULTANE) 15 ML INHAL SOLN ONE (09:32)
--- NOTE | 2021-04-14 10:25 | Diagnostic Imaging Report ---
INDICATION: Cholecystitis. COMPARISON: 02/15/2021. Total fluoroscopy time: 22 seconds Total number fluoroscopic images saved: 27 Details of the procedure: Multiple intraoperative image intensifier and digital subtraction views of the right upper abdominal quadrant were obtained during laparoscopic cholecystectomy. Images provided show contrast filling the intra and extra hepatic biliary ductal systems. No distinct intraluminal filling defects are seen. There is no focal stricture or evidence of biliary obstruction. Contrast empties into the small bowel, as expected. IMPRESSION: 1. Fluoroscopic guidance provided during laparoscopic cholangiogram as above. Dictated by: Dictated on workstation # [id number]
--- NOTE | 2021-04-14 13:36 | Anesthesia-General Post-Op ---
General Patient Condition Mental Status/LOC: Same as Preop Cardiovascular: Satisfactory Nausea/Vomiting: Absent Respiratory: Satisfactory Pain: Controlled Complications: Absent Post Op Complications Complications None Follow Up Care/Instructions Patient Instructions None needed. Anesthesia/Patient Condition Patient Condition Patient was seen this morning after the procedure and he was doing well, no complaints, stable vital signs, no apparent adverse anesthesia problems. KIKE PEREZ DO Apr 14, 2021 13:36
== END 2021-04-14 11:15 | disposition home or self-care (01) ==
LOC: SDC 05:58
PROVIDERS: ATTEND Surgery
DX: K82.8 Other specified diseases of gallbladder (principal); K81.1 Chronic cholecystitis; K21.00 Gastro-esophageal reflux disease with esophagitis, without bleeding; Z79.899 Other long term (current) drug therapy; Z87.891 Personal history of nicotine dependence
CPT/HCPCS: 76000; 87081; 94664

== ENCOUNTER 2022-01-11 08:44 | Emergency (ER) | payer OTHER ==
[~2022-01-11] VITALS: Ht 182 cm; Wt 85.0 kg
[~2022-01-11 08:44] MED LIST changes: +ACHD5005 PO; +DOCU-143 PO
[2022-01-11 08:50] VITALS: BP 137/91
[2022-01-11 09:15] LABS: BASOPHILS % (AUTO) 1 % (0-10); EOSINOPHILS # (AUTO) 0.1 10^3/uL (0.0-0.3); EOSINOPHILS % (AUTO) 2 % (0-10); HEMATOCRIT 47 % (40-54); HEMOGLOBIN 16.4 g/dL (13.3-17.7); LYMPHOCYTES # (AUTO) 1.4 10^3/uL (1.0-4.0); LYMPHOCYTES % (AUTO) 26 % (12-44); MEAN CORPUSCULAR HEMOGLOBIN 32 pg (25-34); MEAN CORPUSCULAR HGB CONC 35 g/dL (32-36); MEAN CORPUSCULAR VOLUME 91 fL (80-99); MONOCYTES # (AUTO) 0.5 10^3/uL (0.0-1.0); MONOCYTES % (AUTO) 9 % (0-12); NEUTROPHILS # (AUTO) 3.4 10^3/uL (1.8-7.8); NEUTROPHILS % (AUTO) 63 % (42-75); PLATELET COUNT 229 10^3/uL (130-400); WHITE BLOOD COUNT 5.4 10^3/uL (4.3-11.0)
--- NOTE | 2022-01-11 09:22 | Diagnostic Imaging Report ---
HISTORY: Chest pain TECHNIQUE: Frontal view the chest COMPARISON: 01/10/2021 FINDINGS: Lung volumes are large. No consolidation is seen. There is no pleural effusion or pneumothorax. The cardiac silhouette is normal in size. IMPRESSION: 1. No acute pulmonary abnormality. Dictated by: Dictated on workstation # [id number]
[2022-01-11 09:29] LABS: ALBUMIN 4.7 GM/DL (3.2-4.5); PROTHROMBIN TIME PATIENT 13.4 SEC (12.2-14.7)
[2022-01-11 09:30] LABS: CHLORIDE 100 MMOL/L (98-107); POTASSIUM 4.3 MMOL/L (3.6-5.0); SODIUM 136 MMOL/L (135-145)
[2022-01-11 09:31] LABS: CALCIUM 9.8 MG/DL (8.5-10.1)
[2022-01-11 09:32] LABS: GLUCOSE 104 MG/DL (70-105); TOTAL PROTEIN 7.8 GM/DL (6.4-8.2)
[2022-01-11 09:33] LABS: CARBON DIOXIDE 25 MMOL/L (21-32)
[2022-01-11 09:34] LABS: BILIRUBIN,TOTAL 0.8 MG/DL (0.1-1.0)
[2022-01-11 09:35] LABS: ALKALINE PHOSPHATASE 54 U/L (40-136)
[2022-01-11 09:36] LABS: CREATININE SERUM 1.09 MG/DL (0.60-1.30); GFR ESTIMATED 91
[2022-01-11 09:37] LABS: BUN/CREATININE RATIO 9
[2022-01-11 09:38] LABS: ALANINE AMINOTRANSFERASE 38 U/L (0-55); MAGNESIUM 1.8 MG/DL (1.6-2.4)
[2022-01-11 09:39] LABS: LIPASE 32 U/L (8-78)
[2022-01-11] MEDS ORDERED: LIDOCAINE 2% VISCOUS 15 ML UDC PO ONE (10:00)
[2022-01-11] MEDS ORDERED: ONDANSETRON 4 MG/2 ML (SDV) Z0FRAN IVP ONE (10:00)
[2022-01-11] MEDS ORDERED: ANTACID SUSP 30 ML UDC (MYLANTA) PO ONE (10:00)
--- NOTE | 2022-01-11 11:45 | ED Abdominal Pain ---
General Chief Complaint: Cardiac/General Problems Stated Complaint: CHEST PAINS | SIDE PAINS Nursing Triage Note: ARRIVED VIA AMB TO ROOM 08 FROM URGENT CARE WITH CHEST PAIN THAT STARTED ON SUNDAY WHILE BUILDING A HOUSE. PT STATES IT IS UNDER HIS RIGHT CHEST BUT GOES TO BOTH SIDES. STATES IT FEELS LIKE HIS GALLBLADDER PAIN BUT HIS GALLBLADDER HAS BEEN REMOVED. Source of Information: Patient Exam Limitations: No Limitations History of Present Illness Date Seen by Provider: Jan 11, 2022 Time Seen by Provider: 08:48 Initial Comments This 36-year-old gentleman presents to the emergency room with complaints of lower chest pain and upper abdominal pain for more than a week and significantly worsening over the past 4 days. It seems to feel better when he is active and distracted. He denies any associated symptoms such as nausea, fever, diarrhea, etc. He has noted some tarry stools. [facility] and was referred to the emergency room. He had cholecystectomy this March. He admits to drinking 1-2 beers every night. He had an EGD in February showing reflux esophagitis. Allergies and Home Medications Allergies Coded Allergies: No Known Drug Allergies (Unverified , 04/11/21) Patient Home Medication List Home Medication List Reviewed: Yes Ciprofloxacin HCl (Ciprofloxacin HCl) 500 Mg Tablet, 500 MG PO BID Prescribed by: VIRA BAER on 01/11/22 1246 Metronidazole (Metronidazole) 500 Mg Tablet, 500 MG PO QID Prescribed by: VIRA BAER on 01/11/22 1246 Tramadol HCl (Ultram) 50 Mg Tablet, 50 MG PO Q6H PRN for PAIN-BREAKTHROUGH Prescribed by: VIRA BAER on 01/11/22 1248 Discontinued Medications Acetaminophen (Tylenol) Unknown Strength Tablet, Unknown Dose PO, (Reported) Discontinued Reason: No Longer Taking Entered as Reported by: FRANCOISE PANTOJA on 04/11/21 1027 Last Action: Discontinued Cetirizine HCl (Zyrtec) 10 Mg Tablet, 10 MG PO DAILY, (Reported) Discontinued Reason: No Longer Taking Entered as Reported by: FRANCOISE PANTOJA on 04/11/21 1027 Last Action: Discontinued Docusate Sodium (Colace) 100 Mg Capsule, 100 MG PO BID Discontinued Reason: No Longer Taking Prescribed by: FARHAN LARES on 04/14/21 0900 Last Action: Discontinued Hydrocodone/Acetaminophen (Hydrocodone-Acetamin 5-325 mg) 1 Each Tablet, 1 EACH PO Q4H PRN for PAIN-MODERATE (5-7) Discontinued Reason: No Longer Taking Prescribed by: FARHAN LARES on 04/14/21 0900 Last Action: Discontinued Omeprazole (Omeprazole) 20 Mg Capsule.dr, 20 MG PO DAILY, (Reported) Discontinued Reason: No Longer Taking Entered as Reported by: FRANCOISE PANTOJA on 04/11/21 1027 Last Action: Discontinued Sucralfate (Carafate) 1 Gm Tablet, 1 GM PO UD, (Reported) Discontinued Reason: No Longer Taking Entered as Reported by: FRANCOISE PANTOJA on 04/11/21 1027 Last Action: Discontinued Review of Systems Review of Systems Constitutional: no symptoms reported EENTM: No Symptoms Reported Respiratory: No Symptoms Reported Cardiovascular: No Symptoms Reported Gastrointestinal: See HPI Genitourinary: No Symptoms Reported Musculoskeletal: no symptoms reported Skin: no symptoms reported Psychiatric/Neurological: No Symptoms Reported Endocrine: No Symptoms Reported Hematologic/Lymphatic: No Symptoms Reported Past Bjxscey-Iqxdpg-Knzjzl Hx Patient Social History Tobacco Use?: No Use of E-Cig and/or Vaping dev: No Substance use?: No Alcohol Use?: Yes Alcohol type: Beer Alcohol Frequency: Daily Immunizations Up To Date Tetanus Booster (TDap): Unknown PED Vaccines UTD: Yes First/Initial COVID19 Vaccinat: NO Second COVID19 Vaccination [place]: NO Third COVID19 Vaccination Date: NO Seasonal Allergies Seasonal Allergies: No Past Medical History Surgeries: Yes (LT ARM TRAUMA, "NECK GLANDS FROM ", right eye) Eye Surgery (Prosthetic eye), Gallbladder, Orthopedic Respiratory: No Currently Using CPAP: No Currently Using BIPAP: No Cardiac: No Neurological: No Reproductive Disorders: No Genitourinary: No Gastrointestinal: Yes Gastroesophageal Reflux, Gall Bladder Disease Musculoskeletal: Yes (LEFT ARM INJURY) Endocrine: No HEENT: Yes (RIGHT EYE TRAUMA/ENUCLEATION/FALSE EYE) Cancer: No Psychosocial: Yes Anxiety Integumentary: No Blood Disorders: No Family Medical History SOCIAL HISTORY: -SMOKES CIGARETTES SOMETIMES, CHEWS DAILY -DENIES DRUG USE -DRINKS ALCOHOL DAILY--"3-4 DRINKS" A DAY--HARD LIQUOR/BEER PAST SURGICAL HISTORY: -RIGHT EYE REMOVED/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 oz. [id number]; 25.00 BMI Method:Stated General Appearance: WD/WN, no apparent distress HEENT: normal ENT inspection Neck: normal inspection Respiratory: chest non-tender, lungs clear, normal breath sounds, no respiratory distress Cardiovascular: regular rate, rhythm, no edema, no murmur Gastrointestinal: normal bowel sounds, soft; No distended; tenderness (Right lower quadrant and epigastric region) Extremities: normal inspection, no pedal edema Neurologic/Psychiatric: stone breaker II-XII nml as tested, no motor/sensory deficits, alert, normal mood/affect, oriented x 3 Skin: normal color, warm/dry Progress/Results/Core Measures Results/Orders Lab Results Laboratory Tests Test 01/11/22 09:08 01/11/22 12:52 Range/Units White Blood Count 5.4 4.3-11.0 10^3/uL Red Blood Count 5.14 4.30-5.52 10^6/uL Hemoglobin 16.4 13.3-17.7 g/dL Hematocrit 47 40-54 % Mean Corpuscular Volume 91 80-99 fL Mean Corpuscular Hemoglobin 32 25-34 pg Mean Corpuscular Hemoglobin Concent 35 32-36 g/dL Red Cell Distribution Width 12.2 10.0-14.5 % Platelet Count 229 130-400 10^3/uL Mean Platelet Volume 9.0 9.0-12.2 fL Immature Granulocyte % (Auto) 0 % Neutrophils (%) (Auto) 63 42-75 % Lymphocytes (%) (Auto) 26 12-44 % Monocytes (%) (Auto) 9 0-12 % Eosinophils (%) (Auto) 2 0-10 % Basophils (%) (Auto) 1 0-10 % Neutrophils # (Auto) 3.4 1.8-7.8 10^3/uL Lymphocytes # (Auto) 1.4 1.0-4.0 10^3/uL Monocytes # (Auto) 0.5 0.0-1.0 10^3/uL Eosinophils # (Auto) 0.1 0.0-0.3 10^3/uL Basophils # (Auto) 0.0 0.0-0.1 10^3/uL Immature Granulocyte # (Auto) 0.0 0.0-0.1 10^3/uL Erythrocyte Sedimentation Rate 1 0-15 MM/HR Prothrombin Time 13.4 12.2-14.7 SEC INR Comment 1.0 0.8-1.4 Activated Partial Thromboplast Time 31 24-35 SEC Sodium Level 136 135-145 MMOL/L Potassium Level 4.3 3.6-5.0 MMOL/L Chloride Level 100 98-107 MMOL/L Carbon Dioxide Level 25 21-32 MMOL/L Anion Gap 11 5-14 MMOL/L Blood Urea Nitrogen 10 7-18 MG/DL Creatinine 1.09 0.60-1.30 MG/DL Estimat Glomerular Filtration Rate 91 BUN/Creatinine Ratio 9 Glucose Level 104 70-105 MG/DL Calcium Level 9.8 8.5-10.1 MG/DL Corrected Calcium 8.5-10.1 MG/DL Magnesium Level 1.8 1.6-2.4 MG/DL Total Bilirubin 0.8 0.1-1.0 MG/DL Aspartate Amino Transf (AST/SGOT) 28 5-34 U/L Alanine Aminotransferase (ALT/SGPT) 38 0-55 U/L Alkaline Phosphatase 54 40-136 U/L Myoglobin 39.9 10.0-92.0 NG/ML Troponin I < 0.028 <0.028 NG/ML C-Reactive Protein High Sensitivity 0.13 0.00-0.50 MG/DL Total Protein 7.8 6.4-8.2 GM/DL Albumin 4.7 H 3.2-4.5 GM/DL Lipase 32 8-78 U/L Urine Color YELLOW Urine Clarity CLEAR Urine pH 6.5 5-9 Urine Specific [place] <=1.005 1.016-1.022 Urine Protein NEGATIVE NEGATIVE Urine Glucose (UA) NEGATIVE NEGATIVE Urine Ketones NEGATIVE NEGATIVE Urine Nitrite NEGATIVE NEGATIVE Urine Bilirubin NEGATIVE NEGATIVE Urine Urobilinogen 0.2 < = 1.0 MG/DL Urine Leukocyte Esterase NEGATIVE NEGATIVE Urine RBC (Auto) NEGATIVE NEGATIVE Urine RBC NONE /HPF Urine WBC NONE /HPF Urine Squamous Epithelial Cells NONE /HPF Urine Crystals NONE /LPF Urine Bacteria NEGATIVE /HPF Urine Casts NONE /LPF Urine Mucus NEGATIVE /LPF Urine Culture Indicated NO My Orders Orders - VIRA QUEEN MD Ekg Tracing (01/11/22 08:48) Cbc With Automated Diff (01/11/22 08:50) Magnesium (01/11/22 08:50) Chest 1 View, Ap/Pa Only (01/11/22 08:50) Comprehensive Metabolic Panel (01/11/22 08:50) Myoglobin Serum (01/11/22 08:50) Protime With Inr (01/11/22 08:50) Partial Thromboplastin Time (01/11/22 08:50) O2 (01/11/22 08:50) Monitor-Rhythm Ecg Trace Only (01/11/22 08:50) Ed Iv/Invasive Line Start (01/11/22 08:50) Lipase (01/11/22 08:50) Troponin I Kelley (01/11/22 08:50) Ondansetron Injection (Zofran Injectio (01/11/22 10:00) Lidocaine 2% Viscous 15 Ml (Xylocaine Vi (01/11/22 10:00) Antacid Suspension (Mylanta Suspension (01/11/22 10:00) Ct Abdomen/Pelvis W (01/11/22 11:23) Ua Culture If Indicated (01/11/22 11:24) Iohexol Injection (Omnipaque 350 Mg/Ml 1 (01/11/22 12:00) Received Contrast (Hold Metformin- Contr (01/11/22 12:00) Ns (Ivpb) (Sodium Chloride 0.9% Ivpb Bag (01/11/22 12:00) Hs C Reactive Protein (01/11/22 12:26) Erythrocyte Sedimentation Rate (01/11/22 12:26) Medications Given in ED Current Medications Medications Dose Ordered Sig/Tricia Route Start Time Stop Time Status Last Admin Dose Admin Al Hydrox/Mg Hydrox/Simethicone 30 ml ONCE ONCE PO 01/11/22 10:00 01/11/22 10:01 DC 01/11/22 10:09 30 ML Iohexol 100 ml ONCE ONCE IV 01/11/22 12:00 01/11/22 12:05 DC 01/11/22 12:06 80 ML Lidocaine HCl 15 ml ONCE ONCE PO 01/11/22 10:00 01/11/22 10:01 DC 01/11/22 10:09 15 ML Ondansetron HCl 4 mg ONCE ONCE IVP 01/11/22 10:00 01/11/22 10:01 DC 01/11/22 10:08 4 MG Sodium Chloride 100 ml ONCE ONCE IV 01/11/22 12:00 01/11/22 12:05 DC 01/11/22 12:06 80 ML Vital Signs/I&O 01/11/22 08:50 Temp 36.3 Pulse 83 Resp 16 B/P (MAP) 137/91 (106) Pulse Ox 99 O2 Delivery Room Air Blood Pressure Mean: 106 Progress Progress Note #1: Time: 11:40 Progress Note Patient was interviewed and examined. He had tenderness in the epigastric region and right lower quadrant. GI cocktail was administered but provided no relief. I discussed options for further work-up in the ER versus careful observation and outpatient follow-up. After reviewing risks and benefits of CT scan including cost, radiation exposure, contrast dye exposure, etc., patient elected to proceed with CT scan. Progress Note #2: Progress Note CT findings were suggestive of colitis. Patient declined treatment with pain medication. Antibiotics were prescribed. See discharge instructions for further discussion. Initial ECG Impression Date: Jan 11, 2022 Initial ECG Impression Time: 08:58 Initial ECG Rate: 81 Comment Sinus rhythm with variable rate and [address] elevation or depression. No abnormal intervals or axis deviation. Diagnostic Imaging Diagonstic Imaging: Xray Plain Films/CT/US/NM/MRI: chest Comments NAME: RADHA ARRIAGA [facility] REC#: [id number] PT STATUS: REG ER : 1985 PHYSICIAN: VIRA QUEEN MD ADMIT DATE: 01/11/22/ER Signed Date of Exam:01/11/22 CHEST 1 VIEW, AP/PA ONLY HISTORY: Chest pain TECHNIQUE: Frontal view the chest COMPARISON: 01/10/2021 FINDINGS: Lung volumes are large. No consolidation is seen. There is no pleural effusion or pneumothorax. The cardiac silhouette is normal in size. IMPRESSION: 1. No acute pulmonary abnormality. Dictated by: Dictated on workstation # [id number] Dict: 01/11/22920 Trans: 01/11/22 1129 ROSSANA [id number] Interpreted by: BRODERICK SINGH MD Electronically signed by: BRODERICK SINGH MD 01/11/22 1129 Diagonstic Imaging: CT Plain Films/CT/US/NM/MRI: abdomen, pelvis Comments NAME: RADHA ARRIAGA [facility] REC#: [id number] PT STATUS: REG ER : 1985 PHYSICIAN: VIRA QUEEN MD ADMIT DATE: 01/11/22/ER Draft Date of Exam:01/11/22 CT ABDOMEN/PELVIS W EXAMINATION: CT abdomen and pelvis with intravenous contrast. TECHNIQUE: Multiple contiguous axial images were obtained through the abdomen and pelvis after the uneventful administration of intravenous contrast. All CT scans use one or more of the following dose optimizing techniques: automated exposure control, MA and/or KvP adjustment based on patient size and exam type or iterative reconstruction. HISTORY: Abdominal pain. Bloody stools. COMPARISON: 02/15/2021. FINDINGS: The heart is unremarkable. The included lung bases are clear. The liver, spleen, pancreas, adrenal glands, and kidneys have a normal appearance. The gallbladder is surgically absent. There is no pathologically enlarged mesenteric or retroperitoneal adenopathy. The bowel loops are nondilated. The appendix is visualized in the right lower quadrant and has a normal appearance. There is bowel wall thickening in the descending and sigmoid colon. Scattered diverticula are seen in the sigmoid colon. No significant perinephric fat stranding. There is no free fluid or free air. No acute osseous abnormalities. Ureters and bladder are grossly normal. There is no free air, loculated collection, or adenopathy in the pelvis. IMPRESSION: 1. Bowel wall thickening involving the descending and sigmoid colon, concerning for colitis. No bowel obstruction. No free fluid or free air. 2. Diverticuli in the sigmoid colon without pericolonic inflammation to suggest acute diverticulitis. Dictated on workstation # [id number] Dict: 01/11/22 1211 Trans: 01/11/221216 CVB [id number] Interpreted by: DESMOND WARNER DO Departure Impression Primary Impression: Epigastric pain Additional Impressions: Right lower quadrant pain Colitis Disposition: 01 HOME, SELF-CARE Condition: Stable Departure-Patient Inst. Decision time for Depature: 12:25 Referrals: ADRIANNA ROD ERIC B DO DUNBAR, BRETT D DO KIDO, TAKAAKI MD NO,LOCAL PHYSICIAN (PCP) Primary Care Physician Patient Instructions: Abdominal Pain, Adult ED, Colitis Add. Discharge Instructions: Adhere to a clear liquid diet for the next 24 hours to provide bowel rest. Start your antibiotics as soon as possible. For pain use Tylenol (acetaminophen) up to 1000 mg every 6 hours as needed. Add Ultram (tramadol) as prescribed for pain not controlled by Tylenol. Avoid driving or operating machinery while on tramadol as it may cause drowsiness. It may also cause constipation so it would be medeiros to use a stool softener such as Colace 100 mg once or twice a day while on Ultram. Colace can be purchased [id number]. You may also wish to take a [id number]-pyzhbgl antacid medication such as omeprazole or Pepcid (famotidine) to help ease stomach upset. If your colitis is due to bacterial infection, a week of antibiotic therapy should clear it up. If you have persistent pain after antibiotics or symptoms return, you should seek referral to a surgeon for colonoscopy. A list of surgeons is provided below for your convenience. The Flagyl (metronidazole) you have been prescribed may make you violently nauseous if used with alcohol. Please do not drink alcohol while using this medication. Eat a bland diet for the duration of your antibiotic therapy. Avoid excessive roughage, spicy foods, fatty or greasy foods, alcohol, large meals, or anything else you know irritates your stomach. Do not take NSAID medications such as ibuprofen, Aleve, Motrin, Advil, aspirin, naproxen, etc. Return to the emergency room if you have a worsening symptoms or develop new symptoms such as fever, diarrhea, bloody stools, vomiting, etc. All discharge instructions reviewed with patient and/or family. Voiced understanding. Scripts Tramadol HCl (Ultram) 50 Mg Tablet 50 MG PO Q6H PRN for PAIN-BREAKTHROUGH, #10 TAB Prov: VIRA QUEEN MD 01/11/22 Ciprofloxacin HCl (Ciprofloxacin HCl) 500 Mg Tablet 500 MG PO BID, #14 TAB Prov: VIRA QUEEN MD 01/11/22 Metronidazole (Metronidazole) 500 Mg Tablet 500 MG PO QID, #28 TAB Prov: VIRA QUEEN MD 01/11/22 Work/School Note: Work Release Form Date Seen in the Emergency Department: Jan 11, 2022 Return to Work: Jan 12, 2022 Restrictions: No Restrictions Copy Copies To 1: ADRIANNA ROD JOSHUA T MD Jan 11, 2022 11:45
[2022-01-11] MEDS ORDERED: NS 100 ML (IVPB) BAG IV ONE (12:00)
[2022-01-11] MEDS ORDERED: IOHEXOL 350 MG/ML 100 ML (OMNIPAQUE 350) VIAL IV ONE (12:00)
[2022-01-11] MEDS ORDERED: HOLD METFORMIN - RECEIVED CONTRAST 20 ML VIAL IV SCH (12:00)
--- NOTE | 2022-01-11 12:17 | Diagnostic Imaging Report ---
EXAMINATION: CT abdomen and pelvis with intravenous contrast. TECHNIQUE: Multiple contiguous axial images were obtained through the abdomen and pelvis after the uneventful administration of intravenous contrast. All CT scans use one or more of the following dose optimizing techniques: automated exposure control, MA and/or KvP adjustment based on patient size and exam type or iterative reconstruction. HISTORY: Abdominal pain. Bloody stools. COMPARISON: 02/15/2021. FINDINGS: The heart is unremarkable. The included lung bases are clear. The liver, spleen, pancreas, adrenal glands, and kidneys have a normal appearance. The gallbladder is surgically absent. There is no pathologically enlarged mesenteric or retroperitoneal adenopathy. The bowel loops are nondilated. The appendix is visualized in the right lower quadrant and has a normal appearance. There is bowel wall thickening in the descending and sigmoid colon. Scattered diverticula are seen in the sigmoid colon. No significant perinephric fat stranding. There is no free fluid or free air. No acute osseous abnormalities. Ureters and bladder are grossly normal. There is no free air, loculated collection, or adenopathy in the pelvis. IMPRESSION: 1. Bowel wall thickening involving the descending and sigmoid colon, concerning for colitis. No bowel obstruction. No free fluid or free air. 2. Diverticuli in the sigmoid colon without pericolonic inflammation to suggest acute diverticulitis. Dictated by: Dictated on workstation # [id number]
[2022-01-11] MEDS ORDERED: CIPR500T5 PO (12:46)
[2022-01-11] MEDS ORDERED: METR-145 PO (12:46)
[2022-01-11] MEDS ORDERED: TRAM-42 PO (12:46)
[2022-01-11 12:58] LABS: BILIRUBIN,URINE NEGATIVE (NEGATIVE); CLARITY,URINE CLEAR; COLOR,URINE YELLOW; GLUCOSE, URINE (UA) NEGATIVE (NEGATIVE); KETONES,URINE NEGATIVE (NEGATIVE); LEUKOCYTE ESTERASE ,URINE NEGATIVE (NEGATIVE); NITRITE,URINE NEGATIVE (NEGATIVE); PH,URINE 6.5 (5-9); PROTEIN,URINE NEGATIVE (NEGATIVE)
[2022-01-11 13:06] LABS: BACTERIA,URINE NEGATIVE /HPF
== END 2022-01-11 13:03 | disposition home or self-care (01) ==
LOC: EDUNIT# 08:44 → ER 08:48
DX: K52.9 Noninfective gastroenteritis and colitis, unspecified (principal); Z28.310 Unvaccinated for COVID-19; Z90.49 Acquired absence of other specified parts of digestive tract; Z87.19 Personal history of other diseases of the digestive system
CPT/HCPCS: 36415; 71045; 74177; 80053; 81000; 83690; 83735; 83874; 84484; 85025; 85610; 85652; 85730; 86141; 93005; 93041

== ENCOUNTER → 2022-02-15 | Outpatient (CLI) | payer OTHER ==
[~2022-02-15] MED LIST changes: +CIPR500T5 PO; +METR-145 PO; +TRAM-42 PO
[2022-02-15 12:47] VITALS: BP 119/65
--- NOTE | 2022-02-15 15:00 | Cardiology Stress Test Report ---
Stress Test Report Date of Procedure/Referring: Date of Procedure: Feb 15, 2022 PCP No,Local Physician Admitting Physician Admitting Physician: Attending Physician: Shanika Tiwari MD Baseline Heart Rate: 62 Baseline Blood Pressure: Blood Pressure Systolic: 119 Blood Pressure Diastolic: 65 Baseline EKG: Baseline EKG: NSR Summary/Conclusion: Summary: In summary, the patient started exercising with a baseline heart rate, blood pressure and EKG mentioned above Patient was able to exercise for a total of 10 minutes on Aman protocol, METs 11.7 Maximum heart rate 184 Maximum blood pressure 142/69 Stress EKG, Minimal nondiagnostic changes Recovery EKG , Return to baseline Conclusion: 1. Good exercise tolerance for a total of 10 minutes on Aman protocol, 11.7 METs, achieving 99 percent of maximum expected heart rate 2. Minimal nondiagnostic EKG changes with exercise returned to baseline during recovery 3. No arrhythmia was noted SHANIKA TIWARI MD Feb 15, 2022 15:00
== END ==
LOC: CARD 13:00
PROVIDERS: ATTEND Internal Medicine Cardiovascular Disease
DX: I10 Essential (primary) hypertension (principal); I25.10 Atherosclerotic heart disease of native coronary artery without angina pectoris
CPT/HCPCS: 93017; C8929; 93306

== ENCOUNTER → 2022-08-18 | Outpatient (CLI) | payer BC ==
[~2022-08-18] MED LIST changes: +HOLD METFORMIN - RECEIVED CONTRAST 20 ML VIAL IV SCH; +IOHEXOL 350 MG/ML 100 ML (OMNIPAQUE 350) VIAL IV ONE; +NITROGLYCERIN 0.4 MG SL TABS BTL 25'S SL STA; +NS 100 ML (IVPB) BAG IV ONE; +meTOprolol 5 MG/5 ML (LOPRESSOR) VIAL IV PRN
[2022-08-18 08:19] VITALS: BP 111/74
[2022-08-18 08:25] VITALS: BP 108/72
[2022-08-18 08:30] VITALS: BP 105/73
[2022-08-18 08:35] VITALS: BP 114/79
[2022-08-18 08:40] VITALS: BP 101/64
[2022-08-18 08:45] VITALS: BP 118/73
--- NOTE | 2022-08-18 12:32 | Diagnostic Imaging Report ---
INDICATION: Chest pain and palpitations. CT coronary artery study performed with pre- and post-IV contrast images, with EKG gating and 3-D reconstructions. Dose reduction protocol was used. Visualized portions of the lung bases are clear. There is no pleural fluid. The aorta shows no evidence of aneurysm or dissection. Coronary artery evaluation demonstrates the left main coronary artery, LAD, and circumflex coronary artery to be patent. There is a left dominant coronary system. 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 Some motion artifact is present. IMPRESSION: No significant coronary artery stenosis or occlusion. Patient has a left dominant coronary system. 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 Some motion artifact is present. Dictated by: Dictated on workstation # [id number]
== END ==
LOC: RAD 07:05
PROVIDERS: ATTEND Internal Medicine Cardiovascular Disease
DX: I65.23 Occlusion and stenosis of bilateral carotid arteries (principal); I10 Essential (primary) hypertension
CPT/HCPCS: 75574